=== PATIENT | female | born 1930 | race Caucasian/White ===

== ENCOUNTER 2016-12-04 17:33 | Outpatient (CLI) | payer MEDICARE, OTHER ==
[2016-12-04 18:31] LABS: BASOPHILS # (AUTO) 0.1 10^3/uL (0.0-0.1); BASOPHILS % (AUTO) 1.5 %; EOSINOPHILS # (AUTO) 0.2 10^3/uL (0.0-0.7); HCT - HEMATOCRIT 35.1 % (37.0-47.0); HGB - HEMOGLOBIN 11.6 g/dL (12.0-16.0); LYMPHOCYTES # (AUTO) 2.2 10^3/uL (1.5-3.5); LYMPHOCYTES % (AUTO) 25.3 %; MEAN CORPUSCULAR HEMOGLOBIN 31.2 pg (27.0-31.0); MEAN CORPUSCULAR VOLUME 94.7 fL (81.0-99.0); MEAN PLATELET VOLUME 7.2 fL (7.9-10.8); MONOCYTES % (AUTO) 11.5 %; NEUTROPHILS # (AUTO) 5.2 10^3/uL (1.5-6.6); NEUTROPHILS % (AUTO) 59.7 %; RED CELL DISTRIBUTION WIDTH 13.9 % (12.0-15.0); UNCORRECTED WHITE BLOOD COUNT 8.8 x10^3/uL; WHITE BLOOD COUNT 8.8 x10^3/uL (4.8-10.8)
[2016-12-04 18:38] LABS: ALBUMIN/GLOBULIN RATIO 0.9 (1.0-2.2); BILIRUBIN,TOTAL 0.2 mg/dL (0.2-1.0); CALCIUM 9.3 mg/dL (8.5-10.3); CREATININE 1.3 mg/dL (0.4-1.0); POTASSIUM 3.9 mmol/L (3.5-5.0); TOTAL PROTEIN 7.1 g/dL (6.7-8.2)
--- NOTE | 2016-12-04 18:54 | Ultrasound Preliminary Report ---
Exam: US DUPLEX EXT VEINS RIGHT IMPRESSION: No evidence for deep venous thrombosis. [facility] SITE ID: [id number]
--- NOTE | 2016-12-04 18:57 | Ultrasound Report ---
EXAM: RIGHT LOWER EXTREMITY VENOUS ULTRASOUND EXAM DATE: 12/04/2016 06:07 PM. CLINICAL HISTORY: Leg pain and swelling COMPARISON: None. TECHNIQUE: Real-time sonographic vascular imaging was performed by the supervisor labor gang through the lower extremity utilizing both color-flow and Doppler spectral analysis. Multiple premium service representative static joesph ges were saved for review. FINDINGS: Common Femoral Vein (CFV): Normal. CFV-GSV Junction: Normal. Profunda Femoral Vein (PFV): Normal. Femoral Vein (FV) Prox: Normal. Femoral Vein (FV) Mid: Normal. Femoral Vein (FV) Dist: Normal. Popliteal Vein: Normal. Posterior Tibial Veins: Normal. Peroneal Veins: Normal. Contralateral Side CFV: Normal. Other: None. IMPRESSION: No evidence for deep venous thrombosis. [facility] Referring Provider Line: [phone] SITE ID: [id number]
== END 2016-12-04 17:34 | disposition home or self-care (01) ==
LOC: DI 17:33
PROVIDERS: ATTEND Physician Assistant
DX: M79.604 Pain in right leg (principal); N18.1 Chronic kidney disease, stage 1; R53.83 Other fatigue
CPT/HCPCS: 36415; 80053; 83880; 84443; 85025

== ENCOUNTER 2017-09-22 15:43 | Outpatient (CLI) | payer MEDICARE, OTHER ==
--- NOTE | 2017-09-22 18:43 | Ultrasound Report ---
Procedure Date: 09/22/2017 Accession Number: [id number] / [id number] Procedure: US - Duplex Ext Veins Right CPT Code: FULL RESULT: EXAM: RIGHT LOWER EXTREMITY VENOUS ULTRASOUND EXAM DATE: 09/22/2017 04:06 PM. CLINICAL HISTORY: Right calf pain and swelling. Rule out DVT. COMPARISON: 12/04/2016. TECHNIQUE: Real-time sonographic vascular imaging was performed by the space technologist through the lower extremity utilizing both color-flow and Doppler spectral analysis. Multiple phlebotomy services representative static images were saved for review. FINDINGS: Common Femoral Vein (CFV): Normal. CFV-GSV Junction: Normal. Profunda Femoral Vein (PFV): Normal. Femoral Vein (FV) Prox: Normal. Femoral Vein (FV) Mid: Normal. Femoral Vein (FV) Dist: Normal. Popliteal Vein: Normal. Posterior Tibial Veins: Normal. Peroneal Veins: Normal. Other: No Reyes cyst. IMPRESSION: 1. No DVT in the right lower extremity. [facility]
== END 2017-09-22 15:44 | disposition home or self-care (01) ==
LOC: DI 15:43
PROVIDERS: ATTEND Physician Assistant
DX: M79.661 Pain in right lower leg (principal); R60.0 Localized edema

== ENCOUNTER 2017-12-26 14:02 | Inpatient (IN) | payer MEDICARE, OTHER ==
--- NOTE | 2017-12-26 15:26 | XRAY Report ---
Reason: GLF, right hip pain Procedure Date: 12/26/2017 Accession Number: [id number] / [id number] Procedure: XR - Hip w/Pelvis 2-3V RT CPT Code: FULL RESULT: EXAM: RIGHT HIP AND PELVIS RADIOGRAPHY EXAM DATE: 12/26/2017 03:09 PM. HISTORY: Fall. Right hip pain. COMPARISONS: None. TECHNIQUE: 1 view of the pelvis and 1 view of the hip. FINDINGS: Bones: Displaced subcapital femoral neck fracture. No other acute bony abnormalities identified. Joints: No dislocation. Expected appearance of left hip arthroplasty. Soft Tissues: Unremarkable. IMPRESSION: Displaced right subcapital femoral neck fracture. [facility]
[2017-12-26] MEDS ORDERED: oxyCODONE 5 MG TABLET PO PRN (15:46)
[2017-12-26] MEDS ORDERED: ONDANSETRON 4 MG/2 ML VIAL IVP PRN (15:46)
[2017-12-26] MEDS ORDERED: ONDANSETRON ODT 4 MG TABLET TL PRN (15:46)
--- NOTE | 2017-12-26 16:06 | ED Physician Documentation ---
History of Present Illness - Stated complaint Stated Complaint: GLF/RT HIP PX - Chief complaint Chief Complaint: General - Additonal information Additional information: 87-year-old female presents the emergency department with right hip pain after falling and injuring her hip today. The patient denies injury to her head, neck, torso or upper extremities. The patient denies a syncopal episode. The patient is unable to ambulate secondary to the pain. Symptoms are described as severe. No relieving factors. No other associated symptoms. Review of Systems Constitutional: denies: Fever Eyes: denies: Discharge Ears: denies: Ear pain Nose: denies: Congestion Throat: denies: Sore throat Cardiac: denies: Chest pain / pressure Respiratory: denies: Cough GI: denies: Abdominal Pain : denies: Dysuria Skin: denies: Rash Musculoskeletal: reports: Extremity pain, Joint pain. denies: Neck pain, Back pain Neurologic: denies: Generalized weakness, Head injury Psychiatric: denies: Depressed Immunocompromised: denies: Chemotherapy PD PAST MEDICAL HISTORY - Past Medical History Cardiovascular: Hypertension Musculoskeletal: Other Other Past Medical History: polyneuralgia - Past Surgical History Past Surgical History: Yes Ortho: Hip replacement HEENT: Cataracts, Tonsil/Adenoidectomy - Allergies Allergies/Adverse Reactions: Allergies Allergy/AdvReac Type Severity Reaction Status Date / Time No Known Drug Allergies Allergy Verified 12/26/17 14:21 - Social History Does the pt smoke?: No Smoking Status: Never smoker Does the pt drink ETOH?: Yes Does the pt have substance abuse?: No - Immunizations Immunizations are current?: Yes PD ED PE NORMAL - General General: Alert and oriented X 3, No acute distress - HEENT HEENT: Atraumatic, PERRL, EOMI - Neck Neck: Supple, no meningeal sign - Cardiac Cardiac: RRR, Strong equal pulses - Respiratory Respiratory: No respiratory distress, Clear bilaterally - Abdomen Abdomen: Soft, Non tender - Extremities Extremities: No: No deformity, No tenderness to palpate, Normal ROM s pain (The patient has an obvious deformity to the right leg with tenderness and decreased range of motion of the hip. There is no knee ankle or foot pain. Normal pulse) - Neuro Neuro: Alert and oriented X 3, Normal speech - Psych Psych: Normal mood Results - Vitals Vitals: Vital Signs - 24 hr 12/26/17 12/26/17 14:16 15:50 Temperature 36.8 C Heart Rate 68 70 Respiratory 20 16 Rate Blood Pressure 164/72 H 138/114 H O2 Saturation 90 L 92 Oxygen O2 Source Room air - Rads (name of study) XR Radiology: Final report received (hip fracture) PD MEDICAL DECISION MAKING - ED course ED course: The case was discussed with Dr. Loaiza the orthopedic surgeon on-call who agrees to evaluate the patient for definitive management. The case was discussed with the hospitalist Dr. Thurman who accepts the patient onto her service. The findings and plan were discussed with the patient who understands and agrees to the plan Departure - Departure Disposition: [facility] DC/Xfer Clinical Impression: Hip fracture Qualifiers: Encounter type: initial encounter Fracture type: closed Laterality: right Qualified Code(s): S72.001A - Fracture of unspecified part of neck of right femur, initial encounter for closed fracture Condition: Fair
--- NOTE | 2017-12-26 16:11 | XRAY Report ---
Reason: fall, hip fx Procedure Date: 12/26/2017 Accession Number: [id number] / [id number] Procedure: XR - Chest 1 View X-Ray CPT Code: 63539 FULL RESULT: EXAM: CHEST RADIOGRAPHY EXAM DATE: 12/26/2017 03:50 PM. CLINICAL HISTORY: Fall, hip fx. COMPARISON: CHEST 2 VIEW PA/LAT 05/25/2015 1:31 PM. TECHNIQUE: 1 view. FINDINGS: Lungs/Pleura: No evidence of lobar infiltrate or effusion. No pneumothorax. Mediastinum: There is cardiomegaly. Other: There is a large hiatal hernia. IMPRESSION: No acute intrathoracic plain film abnormality. [facility]
[2017-12-26 16:19] LABS: BASOPHILS % (AUTO) 0.2 %; HGB - HEMOGLOBIN 11.1 g/dL (12.0-16.0); LYMPHOCYTES # (AUTO) 1.1 10^3/uL (1.5-3.5); LYMPHOCYTES % (AUTO) 8.8 %; MEAN CORPUSCULAR HEMOGLOBIN 27.2 pg (27.0-31.0); MEAN CORPUSCULAR HGB CONC 31.6 g/dL (32.0-36.0); MEAN PLATELET VOLUME 7.2 fL (7.9-10.8); MONOCYTES % (AUTO) 8.2 %; NEUTROPHILS % (AUTO) 82.8 %; PLT - PLATELET COUNT 388 10^3/uL (130-450); RED BLOOD COUNT 4.09 10^6/uL (4.20-5.40); WHITE BLOOD COUNT 12.1 x10^3/uL (4.8-10.8)
[2017-12-26 16:24] LABS: INR 1.3 (0.8-1.2); PT - PROTHROMBIN TIME 14.9 secs (9.9-12.6)
[2017-12-26 16:36] LABS: ALBUMIN 3.3 g/dL (3.2-5.5); ALBUMIN/GLOBULIN RATIO 0.8 (1.0-2.2); BILIRUBIN,TOTAL 0.8 mg/dL (0.2-1.0); CALCIUM 9.2 mg/dL (8.5-10.3); CREATININE 0.9 mg/dL (0.4-1.0); TOTAL PROTEIN 7.3 g/dL (6.7-8.2)
--- NOTE | 2017-12-26 16:49 | HISTORY & PHYSICAL EXAMINATION ---
Chief Complaint - Chief Complaint Chief Complaint: Hip Fracture History of Present Illness - Admitted From Admitted From:: ED - History Obtained From Records Reviewed: Yes History obtained from: Patient Exam Limitations: None - History of Present Illness HPI Comment/Other: 87 yo female with pmh of HTN, chronic pain and previous L hip repair presents to the ER following a fall and right hip fracture. She states that she saw her PCP today for rhinorrhea. PCP evaluated and suggested nasal irrigation. Patient left the PCP office to go to the bank where she noticed her tire was flat. She called [employer] in which they asked her to open the rear car door to access the spare tire. Upon opening the back door, she lost her balance and fell on her right side. She was able to get up with the help of the [employer] servicemen. She called her friend to drive her to the ER where she was evaluated and found to have a R hip fracture on x-ray. Patient is denying abdominal pain, chest pain, sob, syncope, LOC, blurry vision tinnitus, palpitations, nausea, vomiting, fever, dysuria, R upper extremity pain, neck pain. Patient is able to move her toes, dorsalis pedis pulses intact, sensation of L3-S1 bilaterally intact. Her cardiac risk factors include age and hypertension. She has not had an IA, nor is she in atrial fibrillation. She does not have a history of valvular heart disease. She does not have any major lung or kidney problems. Revised Cardiac Risk Index for Pre-Operative Risk is 0. Dr. Loaiza, orthopedic surgeon, has been consulted to evaluate patient. History - Past Medical History Cardiovascular: reports: Hypertension Respiratory: reports: None Neuro: reports: Peripheral neuropathy Endocrine/Autoimmune: reports: None GI: reports: None LEGISLATIVE CORRESPONDENT: reports: Other () : reports: None HEENT: reports: None Psych: reports: None Musculoskeletal: reports: Other (Previous L hip repair) Derm: reports: None MRSA Hx?: No Other Past Medical History: polyneuralgia - Past Surgical History Ortho: reports: Hip replacement HEENT: reports: Cataracts, Tonsil/Adenoidectomy - Family & Social History Family History: Mother: , Hypertension, Father: , IA, Brother: Family History Comment/Other: Mom - passed at 53 with pmh of HTN due to aneurysm. Dad - passed due to IA. Brother - passed at 33 due to accident Living arrangement: At home Living Situation: Alone - Substance History Use: Uses substance without health or social issues: Alcohol (2 drinks of wine a week) Abuse: Recurrent use of substance despite neg consequences: NONE Dependence: Experiences withdrawal or developed tolerances: NONE - POLST Patient has POLST: No POLST Status: Full Code (with living will for clarification in further interventions - she states daughter has living will and it should be followed.) Meds/Allgy - Home Medications Home Medications: Ambulatory Orders Medication Instructions Recorded Confirmed Carvedilol [Coreg] 12.5 mg PO BID 12/26/17 12/26/17 Cholecalciferol (Vitamin D3) 2,000 unit PO DAILY 12/26/17 12/26/17 [Vitamin D] Furosemide [Lasix] 20 mg PO DAILY 12/26/17 12/26/17 Lutein 20 mg PO DAILY 12/26/17 12/26/17 Magnesium Oxide [Mag Ox] 400 mg PO DAILY 12/26/17 12/26/17 Omeprazole 20 mg PO DAILY 12/26/17 12/26/17 Oxybutynin [Ditropan] 5 mg PO DAILY 12/26/17 12/26/17 Potassium Chloride [Micro-K] 10 meq PO DAILY 12/26/17 12/26/17 Ubiquinol 100 mg PO DAILY 12/26/17 12/26/17 predniSONE [Prednisone] mg PO 12/26/17 traZODone [Desyrel] 75 mg PO QPM 12/26/17 12/26/17 - Allergies Allergies/Adverse Reactions: Allergies Allergy/AdvReac Type Severity Reaction Status Date / Time No Known Drug Allergies Allergy Verified 12/26/17 14:21 Review of Systems - Constitutional Constitutional: denies: Fatigue, Fever, Chills - Eyes Eyes: denies: Blurred vision - Ears, Nose & Throat Ears, Nose & Throat: reports: Other (rhinorrhea evaluated by PCP today) - Cardiovascular Cariovascular: denies: Irregular heart rate, Palpitations, Chest pain, Lightheadedness, Syncope - Respiratory Respiratory: denies: Cough, SOB at rest, SOB with exertion - Gastrointestinal Gastrointestinal: reports: Constipation. denies: Abdominal pain, Abdominal distention - Genitourinary Genitourinary: denies: Dysuria - Musculoskeletal Musculoskeletal: reports: Stiffness, Joint pain - Integumentary Integumentary: denies: Rash, Pruritis - Neurological Neurological: reports: Abnormal gait (Pain with walking due to right hip fracture). denies: General weakness, Headache, Dizziness, Numbness, Seizures - Psychiatric Psychiatric: denies: Depression - Endocrine Endocrine: denies: Polyuria - Hematologic/Lymphatic Hematologic/Lymphatic: denies: Anemia, Bruising - All Other Systems All Other Systems: reports: Reviewed and negative Prior Level of Functionality: 87 yo female with pmh of HTN, chronic pain and left hip repair moved to [facility] in 1988 with her . She worked at [employer] until they moved and retired to the [place] in 2003. She had 3 children with her (1 daughter and 2 sons). The daughter and sons live on the [facility] and she visits them regularly. She states they do not [place] to [place]. Patient is active and plays golf, bridge, mows her own lawn and gardens daily. She is yazidi and is involved in prayer groups and bible studies throughout the week. She has a close friend, Roverto, and a good support group through her buddhism. Exam - Vital Signs Reviewed Vital Signs: Yes Vital Signs: Vital Signs x48h Temp Pulse Resp BP Pulse Ox 12/26/17 15:50 70 16 138/114 H 92 12/26/17 14:16 36.8 C 68 20 164/72 H 90 L - Physical Exam General Appearance: positive: No acute distress, Alert Eyes Bilateral: positive: Normal inspection, PERRL ENT: positive: ENT inspection nml, No signs of dehydration Neck: positive: Nml inspection Respiratory: positive: Chest non-tender, No respiratory distress, Rhonchi. negative: Wheezes, Rales Cardiovascular: positive: Regular rate & rhythm, No murmur, No gallop Peripheral Pulses: positive: 2+ (radial and dorsalis pedis bilaterally) Abdomen: positive: Non-tender, No organomegaly, Nml bowel sounds, No distention Rectal: negative: Bloody stool Back: positive: Nml inspection Skin: positive: Color nml, No rash, Warm, Dry Extremities: positive: Non-tender, Full ROM (able to move her toes, flex/extend ankle bilaterally, Full ROM of UE), Nml appearance, Pedal edema Neurologic/Psychiatric: positive: Oriented x3, Mood/affect nml, Other (L3-S1 bilaterally intact) Conclusion/Plan - Problem List (1) Hip fracture Conclusion/Plan: IMPRESSION: Displaced right subcapital femoral neck fracture. Plan: Dr. Loaiza consulted and evaluated patient - states NPO after midnight chest x-ray, ekg, coags completed for surgery oxycodone for pain, zofran for nausea Lovenox following surgery Qualifiers: Encounter type: initial encounter Fracture type: closed Laterality: right Qualified Code(s): S72.001A - Fracture of unspecified part of neck of right femur, initial encounter for closed fracture (2) Preop cardiovascular exam Conclusion/Plan: She is not undergoing a high risk surgery, no history of ischemic heart disease, no history of congestive heart failure, no history of cerebrovascular disease, no insulin, and creatinine is less than 2. This leaves her with 0 points, class I risk, and 0.4% risk of major cardiac event. (3) Essential hypertension Conclusion/Plan: Blood pressure levels from 180-136 systolic to 138-60 diastolic. Patient chronic problem taking furosemide and carvedilol. Plan: continue home medication monitor vitals (4) Hypokalemia Conclusion/Plan: Supplement with 1 dose of p.o. potassium. N.p.o. after midnight. Recheck potassium in the morning. (5) Normocytic anemia Conclusion/Plan: chronic. Present in 2016. Plan: check anemia panel stool for occult blood - Lab Results Lab results reviewed: Yes Fish Bones: 12/26/17 16:14 12/26/17 16:14 - Diagnostic Imaging Results Diagnostic Imaging Results: positive: Final report reviewed Diagnostic Imaging Results Comments: EXAM: [id number] XR/RHIP2V ([id number]) Reason: GLF, right hip pain Procedure Date: 12/26/2017 Accession Number: [id number] / [id number] Procedure: XR - Hip w/Pelvis 2-3V RT CPT Code: FULL RESULT: EXAM: RIGHT HIP AND PELVIS RADIOGRAPHY EXAM DATE: 12/26/2017 03:09 PM. HISTORY: Fall. Right hip pain. COMPARISONS: None. TECHNIQUE: 1 view of the pelvis and 1 view of the hip. FINDINGS: Bones: Displaced subcapital femoral neck fracture. No other acute bony abnormalities identified. Joints: No dislocation. Expected appearance of left hip arthroplasty. Soft Tissues: Unremarkable. IMPRESSION: Displaced right subcapital femoral neck fracture. [facility] Medical Assisting Instructor: Reading Radiologist: Elian Muir MD Releasing Radiologist: Elian Muir MD Released Date Time: 12/26/171526 Report 152 cc: ROSEY Velazco; Azar Bansal DO Principal Band Aid Machine Operator Name: Elian Muir Provider ID: [id number] EXAM: [id number] XR/[id number] ([id number]) Reason: fall, hip fx Procedure Date: 12/26/2017 Accession Number: [id number] / [id number] Procedure: XR - Chest 1 View X-Ray CPT Code: 02530 FULL RESULT: EXAM: CHEST RADIOGRAPHY EXAM DATE: 12/26/2017 03:50 PM. CLINICAL HISTORY: Fall, hip fx. COMPARISON: CHEST 2 VIEW PA/LAT 05/25/2015 1:31 PM. TECHNIQUE: 1 view. FINDINGS: Lungs/Pleura: No evidence of lobar infiltrate or effusion. No pneumothorax. Mediastinum: There is cardiomegaly. Other: There is a large hiatal hernia. IMPRESSION: No acute intrathoracic plain film abnormality. [facility] Medical Assisting Instructor: Reading Radiologist: Giovanni Mckeon MD Releasing Radiologist: Giovanni Mckeon MD Released Date Time: 12/26/171610 Report 161 cc: ROSEY Velazco; Azar Bansal DO EXAM: RIGHT HIP AND PELVIS RADIOGRAPHY FINDINGS: Bones: Displaced subcapital femoral neck fracture. No other acute bony abnormalities identified. Joints: No dislocation. Expected appearance of left hip arthroplasty. Soft Tissues: Unremarkable. - EKG Results EKG Interpreted Independently: Yes Core Measures - Anticipated LOS I expect patient to be DC'd or transferred within 96 hours.: Yes - DVT/VTE - Prophylaxis VTE/DVT Device ordered at admit?: Yes - Stroke - Rehab Assessment Rehab services assessment to be ordered?: No - AMI - Statin at Admit Aspirin Prescribed on Admit: No
[2017-12-26] MEDS: SODIUM CHLORIDE 0.9% 1,000 ML IV SCH (17:02)
[2017-12-26] MEDS: SODIUM CHLORIDE FLUSH 0.9% 10 ML SYRINGE IVP SCH (17:02)
--- NOTE | 2017-12-26 17:27 | PROVIDER PROGRESS NOTE ---
Subjective - Prog Note Date Prog Note Date: 12/26/17 Prog Note Time: 17:25 - Subjective Pt reports feeling: Worse (Patient [facility] a GLF while working on her car's flat tire, sustaining a closed displced right subcapital hip fracture today. No LOC or othrer injury. History of left THR at [facility] in [address] Penn. Lives alone; very active and independent (golfs).) Objective - Vital Signs/Intake & Output Vital Signs: Vital Signs x48h Temp Pulse Pulse Resp BP BP Pulse Ox 12/26/17 17:07 92 12/26/17 17:06 36.6 C 75 18 162/66 H 88 L 12/26/17 16:48 75 15 180/136 H 92 12/26/17 15:50 70 16 138/114 H 92 12/26/17 14:16 36.8 C 68 20 164/72 H 90 L - Lab Results Fish Bones: 12/26/17 16:14 12/26/17 16:14 Other Labs: Lab Results x24hrs 12/26/17 12/26/17 12/26/17 Range/Units 16:14 16:14 16:14 WBC (4.8-10.8) x10^3/uL RBC (4.20-5.40) 10^6/uL Hgb (12.0-16.0) g/dL Hct (37.0-47.0) % MCV (81.0-99.0) fL MCH (27.0-31.0) pg MCHC (32.0-36.0) g/dL RDW (12.0-15.0) % Plt Count (130-450) 10^3/uL MPV (7.9-10.8) fL Neut # (Auto) (1.5-6.6) 10^3/uL Lymph # (Auto) (1.5-3.5) 10^3/uL Walton # (Auto) (0.0-1.0) 10^3/uL Eos # (Auto) (0.0-0.7) 10^3/uL Baso # (Auto) (0.0-0.1) 10^3/uL Absolute Nucleated RBC x10^3/uL Nucleated RBC % /100WBC PT 14.9 H (9.9-12.6) secs INR 1.3 H (0.8-1.2) APTT 27.5 (24.9-33.3) secs Sodium 136 (135-145) mmol/L Potassium 3.3 L (3.5-5.0) mmol/L Chloride 93 L (101-111) mmol/L Carbon Dioxide 31 (21-32) mmol/L Anion Gap 12.0 (6-13) BUN 21 H (6-20) mg/dL Creatinine 0.9 (0.4-1.0) mg/dL Estimated GFR (MDRD) 59 L (>89) Glucose 146 H (70-100) mg/dL Calcium 9.2 (8.5-10.3) mg/dL Total Bilirubin 0.8 (0.2-1.0) mg/dL AST 23 (10-42) IU/L ALT 19 (10-60) IU/L Alkaline Phosphatase 75 (42-121) IU/L Troponin I < 0.04 (<0.49) ng/mL Total Protein 7.3 (6.7-8.2) g/dL Albumin 3.3 (3.2-5.5) g/dL Globulin 4.0 (2.1-4.2) g/dL Albumin/Globulin Ratio 0.8 L (1.0-2.2) Lipase 30 (22-51) U/L 12/26/17 Range/Units 16:14 WBC 12.1 H (4.8-10.8) x10^3/uL RBC 4.09 L (4.20-5.40) 10^6/uL Hgb 11.1 L (12.0-16.0) g/dL Hct 35.1 L (37.0-47.0) % MCV 86.0 (81.0-99.0) fL MCH 27.2 (27.0-31.0) pg MCHC 31.6 L (32.0-36.0) g/dL RDW 16.0 H (12.0-15.0) % Plt Count 388 (130-450) 10^3/uL MPV 7.2 L (7.9-10.8) fL Neut # (Auto) 10.0 H (1.5-6.6) 10^3/uL Lymph # (Auto) 1.1 L (1.5-3.5) 10^3/uL Walton # (Auto) 1.0 (0.0-1.0) 10^3/uL Eos # (Auto) 0.0 (0.0-0.7) 10^3/uL Baso # (Auto) 0.0 (0.0-0.1) 10^3/uL Absolute Nucleated RBC 0.00 x10^3/uL Nucleated RBC % 0.0 /100WBC PT (9.9-12.6) secs INR (0.8-1.2) APTT (24.9-33.3) secs Sodium (135-145) mmol/L Potassium (3.5-5.0) mmol/L Chloride (101-111) mmol/L Carbon Dioxide (21-32) mmol/L Anion Gap (6-13) BUN (6-20) mg/dL Creatinine (0.4-1.0) mg/dL Estimated GFR (MDRD) (>89) Glucose (70-100) mg/dL Calcium (8.5-10.3) mg/dL Total Bilirubin (0.2-1.0) mg/dL AST (10-42) IU/L ALT (10-60) IU/L Alkaline Phosphatase (42-121) IU/L Troponin I (<0.49) ng/mL Total Protein (6.7-8.2) g/dL Albumin (3.2-5.5) g/dL Globulin (2.1-4.2) g/dL Albumin/Globulin Ratio (1.0-2.2) Lipase (22-51) U/L - Diagnostic Imaging Diagnostic Imaging Comments: XR shows a displaced right subcapital hip fracture - Other Results/Comments Other Results/Comments: EXAM: Right hip: painful motion. Legs equal length and symmetrical rotation. Moves toes well.Sensation intact. 1+ DP pulse. Assessment/Plan - Problem List (1) Hip fracture Impression: Closed, displaced right subcapital hip fracture in active elderly patient PLAN: To OR Sat for cementless right bipolar hip hemiarthroplasty. Risk/benefits of surgery explained; questions answered. She wishes to proceed as planned. Consent signed. Leg marked. Qualifiers: Encounter type: initial encounter Fracture type: closed Laterality: right Qualified Code(s): S72.001A - Fracture of unspecified part of neck of right femur, initial encounter for closed fracture
[2017-12-26] MEDS ORDERED: ceFAZolin 2 GM/50 ML 2 GM/50 ML BAG IV SCH (17:30)
--- NOTE | 2017-12-26 18:56 | CONSULTATION NOTE ---
DATE OF SERVICE: 12/26/2017 Physician: Carlo Loaiza MD REFERRING PHYSICIAN: Azar Bansal of the emergency room department. CHIEF COMPLAINT: "My right hip hurts." HISTORY OF PRESENT ILLNESS: The patient is an 87-year-old, female, a very active individua l who lives alone, who apparently was attempting to lift the hatchback trunk lid of her [employer] er vehicle today, while attempting to assist [employer] with a replacement of her flat tire, when she lost h er balance and fell onto her right side. She noted immediate pain and mild deformity of the leg, was unable to stand or weight bear after this fall. She was taken by ambulance to the emergency room he re, at [facility], where x-rays showed a displaced closed right subcapital hip fracture . Patient denies any loss of consciousness, nausea, vomiting, or other injuries. In the past, in 13 10, she apparently had a left total hip arthroplasty performed by Dr. Fili camara at [facility] in [place], [place]. PHYSICAL EXAMINATION: Reveals a small, elderly, woman, lying in her bed, in a mild amount of distress. Right hip: There is some tenderness anteriorly on palpation around the hip. There is painful range of motion of the hip noted. Right leg appears to be essentially the same length as the left side. Minimal malrotation when compared to the left side. She moves her toes on command witho ut any problems. Sensation appeared to be intact as well (patient does complain of mild neuropathy - chronic). Patient has a 1+ dorsalis pedis pulse on palpation today as well. Toes are warm. X-RAYS: Show a displaced subcapital right hip fracture. ASSESSMENT: 1. Closed displaced right subcapital hip fracture. 2. History of hypertension. PLAN: Patient has been cleared for surgery by the medical service. Have discussed with the patient our treatment options. She wishes to proceed with surgery. Our plan then would be to insert a [facility] bipolar right hip hemiarthroplasty Friday. This has been scheduled with the OR. Risks and b enefits of surgery were explained to the patient. These include anesthesia risks, infection, blood l oss, nerve damage, refracture, hip dislocation, etc. She appears to understand these risks and wishe s to proceed with surgery. The leg has been marked, and consent has been signed. TD: 12/26/2017 17:43
[2017-12-26] MEDS ORDERED: POTASSIUM CHLORIDE 20 MEQ TABLET PO ONE (20:21)
[2017-12-26] MEDS: ACETAMINOPHEN 325 MG TABLET PO PRN (20:47)
[2017-12-27] MEDS: SODIUM CHLORIDE FLUSH 0.9% 10 ML SYRINGE IVP SCH ×3 (00:01→18:39)
[2017-12-27] MEDS: ACETAMINOPHEN 325 MG TABLET PO PRN ×2 (01:30→06:52)
[2017-12-27] MEDS: SODIUM CHLORIDE 0.9% 1,000 ML IV SCH (04:16)
[2017-12-27 04:50] LABS: CALCIUM 8.4 mg/dL (8.5-10.3); CREATININE 0.8 mg/dL (0.4-1.0)
[2017-12-27 04:53] LABS: BASOPHILS # (AUTO) 0.1 10^3/uL (0.0-0.1); BASOPHILS % (AUTO) 0.6 %; EOSINOPHILS # (AUTO) 0.3 10^3/uL (0.0-0.7); HGB - HEMOGLOBIN 9.8 g/dL (12.0-16.0); LYMPHOCYTES # (AUTO) 1.7 10^3/uL (1.5-3.5); LYMPHOCYTES % (AUTO) 16.2 %; MEAN CORPUSCULAR HEMOGLOBIN 27.3 pg (27.0-31.0); MEAN CORPUSCULAR HGB CONC 31.7 g/dL (32.0-36.0); MEAN CORPUSCULAR VOLUME 86.3 fL (81.0-99.0); MEAN PLATELET VOLUME 7.2 fL (7.9-10.8); MONOCYTES # (AUTO) 0.9 10^3/uL (0.0-1.0); MONOCYTES % (AUTO) 8.3 %; NEUTROPHILS # (AUTO) 7.4 10^3/uL (1.5-6.6); NEUTROPHILS % (AUTO) 71.9 %; PLT - PLATELET COUNT 314 10^3/uL (130-450); RED BLOOD COUNT 3.57 10^6/uL (4.20-5.40); RED CELL DISTRIBUTION WIDTH 15.7 % (12.0-15.0); WHITE BLOOD COUNT 10.3 x10^3/uL (4.8-10.8)
[2017-12-27] MEDS: POLYETHYLENE GLYCOL 3350 17 GM PACKET PO SCH (07:22)
[2017-12-27] MEDS ORDERED: ENOXAPARIN 40 MG/0.4 ML SYRINGE SUBQ SCH (09:00)
--- NOTE | 2017-12-27 11:39 | ANESTHESIA ---
Pre-Anesthesia VS, & Labs - Diagnosis Right fractured hip - Procedure Right hip hemiarthroplasty Vital Signs: Temp Pulse Resp BP Pulse Ox 36.8 C 71 19 153/62 H 90 L 12/27/17 07:38 12/27/17 07:38 12/27/17 07:38 12/27/17 07:38 12/27/17 07:38 Height 4 ft 11 in Weight (kg) 55 kg Body Mass Index 24.5 - NPO >8 hours - Is Patient ?: Not Applicable - Lab Results Current Lab Results: Laboratory Tests 12/27/17 04:25: Blood Type A POSITIVE, Antibody Screen NEGATIVE 12/27/17 04:25: Sodium 137, Potassium 3.8, Chloride 100 L, Carbon Dioxide 27, Anion Gap 10.0, BUN 20, Creatinine 0.8, Estimated GFR (MDRD) 68 L, Glucose 120 H , Calcium 8.4 L 12/27/17 04:25: WBC 10.3, RBC 3.57 L, Hgb 9.8 L, Hct 30.8 L, MCV 86.3, MCH 27.3, MCHC 31.7 L, RDW 15.7 H, Plt Count 314, MPV 7.2 L, Neut # (Auto) 7.4 H, Lymph # (Auto) 1.7, Creek # (Auto) 0.9, Eos # (Auto) 0.3, Baso # (Auto) 0.1, Absolute Nucleated RBC 0.01, Nucleated RBC % 0.1 12/26/17 16:14: PT 14.9 H, INR 1.3 H, APTT 27.5 12/26/17 16:14: Troponin I < 0.04 12/26/17 16:14: Sodium 136, Potassium 3.3 L, Chloride 93 L, Carbon Dioxide 31, Anion Gap 12.0, BUN 21 H, Creatinine 0.9, Estimated GFR (MDRD) 59 L, Glucose 146 H, Calcium 9.2, Total Bilirubin 0.8, AST 23, ALT 19, Alkaline Phosphatase 75, Total Protein 7.3, Albumin 3.3, Globulin 4.0, Albumin/Globulin Ratio 0.8 L, Lipase 30 12/26/17 16:14: WBC 12.1 H, RBC 4.09 L, Hgb 11.1 L, Hct 35.1 L, MCV 86.0, MCH 27.2, MCHC 31.6 L, RDW 16.0 H, Plt Count 388, MPV 7.2 L, Neut # (Auto) 10.0 H, Lymph # (Auto) 1.1 L, Creek # (Auto) 1.0, Eos # (Auto) 0.0, Baso # (Auto) 0.0, Absolute Nucleated RBC 0.00, Nucleated RBC % 0.0 Fish Bones: 12/27/17 04:25 12/27/17 04:25 Home Medications and Allergies Home Medications: Ambulatory Orders Carvedilol [Coreg] 12.5 mg PO BID 12/26/17 Cholecalciferol (Vitamin D3) [Vitamin D] 2,000 unit PO DAILY 12/26/17 Furosemide [Lasix] 20 mg PO DAILY 12/26/17 Magnesium Oxide [Mag Ox] 400 mg PO DAILY 12/26/17 Omeprazole 20 mg PO DAILY 12/26/17 Oxybutynin [Ditropan] 5 mg PO QPM 12/26/17 Potassium Chloride [Micro-K] 10 meq PO DAILY 12/26/17 Ubiquinol 100 mg PO DAILY 12/26/17 predniSONE [Prednisone] 7.5 mg PO DAILY 12/26/17 traZODone [Desyrel] 25 mg PO QPM 12/26/17 Vit A/Vit C/Vit E/Zinc/Copper [Preservision Areds Softgel] 2 each PO DAILY 12/27/17 Active Medications Acetaminophen (Tylenol) 650 mg PO Q4HR PRN PRN Reason: Pain 1 to 4 Last Admin: 12/27/17 06:52 Dose: 650 mg Enoxaparin Sodium (Lovenox) 40 mg SUBQ DAILY SUSANNA Last Admin: 12/27/17 07:09 Dose: Not Given Sodium Chloride (Normal Saline 0.9%) 1,000 mls @ 85 mls/hr IV .[id number] SUSANNA Last Admin: 12/27/17 04:16 Dose: 85 mls/hr Cefazolin Sodium/Dextrose (Ancef 2 Gm/50 Ml) 2 gm in 50 mls @ 100 mls/hr IV ONCE SUSANNA Stop: 12/27/17 17:00 Morphine Sulfate (Morphine (Carpuject)) 2 mg IVP Q2HR PRN PRN Reason: Pain 8 to 10 Ondansetron HCl (Zofran Inj) 4 mg IVP Q6HR PRN PRN Reason: Nausea / Vomiting Ondansetron HCl (Zofran Odt) 4 mg TL Q6HR PRN PRN Reason: Nausea / Vomiting Oxycodone HCl (Roxicodone) 5 mg PO Q4HR PRN PRN Reason: Pain 5 to 7 Polyethylene Glycol (Miralax) 17 gm PO DAILY [facility] Last Admin: 12/27/17 07:22 Dose: Not Given Sodium Chloride (Normal Saline Flush 0.9%) 10 ml IVP PRN PRN PRN Reason: NEEDED PER PROVIDER ORDERS Sodium Chloride (Normal Saline Flush 0.9%) 10 ml IVP 0100,0900,1700 [facility] Last Admin: 12/27/17 07:22 Dose: Not Given Carvedilol [Coreg] 12.5 mg PO BID 12/26/17 Cholecalciferol (Vitamin D3) [Vitamin D] 2,000 unit PO DAILY 12/26/17 Furosemide [Lasix] 20 mg PO DAILY 12/26/17 Magnesium Oxide [Mag Ox] 400 mg PO DAILY 12/26/17 Omeprazole 20 mg PO DAILY 12/26/17 Oxybutynin [Ditropan] 5 mg PO QPM 12/26/17 Potassium Chloride [Micro-K] 10 meq PO DAILY 12/26/17 Ubiquinol 100 mg PO DAILY 12/26/17 predniSONE [Prednisone] 7.5 mg PO DAILY 12/26/17 traZODone [Desyrel] 25 mg PO QPM 12/26/17 Vit A/Vit C/Vit E/Zinc/Copper [Preservision Areds Softgel] 2 each PO DAILY 12/27/17 Allergies/Adverse Reactions: Allergies Allergy/AdvReac Type Severity Reaction Status Date / Time No Known Drug Allergies Allergy Verified 12/26/17 14:21 Anes History & Medical History - Anesthetic History Anesthesia Complications: reports: No previous complications Family history of Anesthesia Complications: Denies Family history of Malignant Hyperthermia: Denies - Medical History Cardiovascular: reports: Hypertension Pulmonary: reports: None Gastrointestinal: reports: None, GERD, Hiatal hernia Urinary: reports: None Neuro: reports: Peripheral neuropathy Musculoskeletal: reports: Other (Previous L hip repair) Endocrine/Autoimmune: reports: None Blood Disorders: reports: None Skin: reports: None Smoking Status: Former smoker Psychosocial: reports: No issues indicated Other Past Medical History: polyneuralgia - Surgical History Eyes Ears Nose Throat (EENT): Cataracts, Tonsil/Adenoidectomy Orthopedic: Hip replacement Exam General: Alert, Oriented x3 Dental: WNL Mouth Opening: Greater than 4 Fingerbreadths Neck Mobility: Limited Mallampati classification: II Thyromental Distance: greater than 6 cm Respiratory: Lungs clear Neurological: Normal speech Mental/Cognitive Status: Alert/Oriented X3 Cognitive Status: Within normal limits Plan Anesthesia Type: General Consent for Procedure(s) Verified and Reviewed: Yes Code Status: Attempt Resuscitation ASA classification: 2-Mild systemic disease Is this case an emergency?: Yes
--- NOTE | 2017-12-27 11:49 | PROVIDER PROGRESS NOTE ---
Subjective - Prog Note Date Prog Note Date: 12/27/17 Prog Note Time: 08:00 - Subjective Pt reports feeling: No change Subjective: 87 yo female with pmh of HTN, chronic pain and previous L hip repair inpatient Day 2 presented to the ER following a fall and right hip fracture. Dr. Loaiza was consulted and evaluated the patient for surgery this afternoon. Patient understands the risk/benefits of surgery and has no further questions. Patient has requested rehab at [facility] where she was treated following left hip replacement in 2007. Patient tolerated pain. Patient is denying abdominal pain, chest pain, sob, syncope, LOC, blurry vision tinnitus, palpitations, nausea, vomiting, fever, dysuria, R upper extremity pain, neck pain. Patient is able to move her toes, dorsalis pedis pulses intact, sensation of L3-S1 bilaterally int act. [employer] Surgical Risk Factor evaluated with below average chance of outcome for serious complication, any complication, pneumonia, cardiac complication, surgical site infection, UTI, venous thromboembolism, renal failure, readmission, return to OR, with predicted hospital stay of 3.5 days. Current Medications - Current Medications Current Medications: Current Medications Generic Name Dose Route Start Last Admin Trade Name Freq PRN Reason Stop Dose Admin Acetaminophen 650 mg 12/26/17 15:46 12/27/17 06:52 Tylenol PO 650 mg Q4HR PRN Administration Pain 1 to 4 Enoxaparin Sodium 40 mg 12/27/17 09:00 12/27/17 07:09 Lovenox SUBQ Not Given DAILY SUSANNA Sodium Chloride 1,000 mls @ 85 mls/hr 12/26/17 16:00 12/27/17 04:16 Normal Saline 0.9% IV 85 mls/hr .[id number] SUSANNA Administration Polyethylene Glycol 17 gm 12/27/17 09:00 12/27/17 07:22 Miralax PO Not Given DAILY SUSANNA Sodium Chloride 10 ml 12/26/17 17:00 12/27/17 07:22 Normal Saline Flush 0.9% IVP Not Given 0100,0900,1700 SUSANNA Objective - Vital Signs/Intake & Output Reviewed Vital Signs: Yes Vital Signs: Vital Signs x48h Temp Pulse Resp BP Pulse Ox 12/27/17 07:38 36.8 C 71 19 153/62 H 90 L Intake & Output: Intake & Output 10/31/18 11/01/18 11/02/18 11/03/18 23:59 23:59 23:59 23:59 Intake Total 402.758 5757.75 Output Total 500 600 Balance 147.083 507.75 - Objective General Appearance: positive: No acute distress, Alert Eyes Bilateral: positive: Normal inspection, PERRL ENT: positive: ENT inspection nml, No signs of dehydration Neck: positive: Nml inspection Respiratory: positive: Chest non-tender, No respiratory distress, Breath sounds nml Cardiovascular: positive: Regular rate & rhythm, No murmur, No gallop Peripheral Pulses: 2+ Radial (R), 2+ Radial (L), 2+ Dorsalis pedis (R), 2+ Dorsalis pedis (L) Rectal: negative: Bloody stool Skin: positive: Color nml, No rash, Warm, Dry Extremities: positive: Nml appearance, No pedal edema. negative: Full ROM (decrease ROM of left hip due to fracture) Neurologic/Psychiatric: positive: Oriented x3, Mood/affect nml - Lab Results Fish Bones: 12/27/17 04:25 12/27/17 04:25 Other Labs: Lab Results x24hrs 12/27/17 12/27/17 12/27/17 Range/Units 04:25 04:25 04:25 WBC 10.3 (4.8-10.8) x10^3/uL RBC 3.57 L (4.20-5.40) 10^6/uL Hgb 9.8 L (12.0-16.0) g/dL Hct 30.8 L (37.0-47.0) % MCV 86.3 (81.0-99.0) fL MCH 27.3 (27.0-31.0) pg MCHC 31.7 L (32.0-36.0) g/dL RDW 15.7 H (12.0-15.0) % Plt Count 314 (130-450) 10^3/uL MPV 7.2 L (7.9-10.8) fL Neut # (Auto) 7.4 H (1.5-6.6) 10^3/uL Lymph # (Auto) 1.7 (1.5-3.5) 10^3/uL Garland # (Auto) 0.9 (0.0-1.0) 10^3/uL Eos # (Auto) 0.3 (0.0-0.7) 10^3/uL Baso # (Auto) 0.1 (0.0-0.1) 10^3/uL Absolute Nucleated RBC 0.01 x10^3/uL Nucleated RBC % 0.1 /100WBC PT (9.9-12.6) secs INR (0.8-1.2) APTT (24.9-33.3) secs Sodium 137 (135-145) mmol/L Potassium 3.8 (3.5-5.0) mmol/L Chloride 100 L (101-111) mmol/L Carbon Dioxide 27 (21-32) mmol/L Anion Gap 10.0 (6-13) BUN 20 (6-20) mg/dL Creatinine 0.8 (0.4-1.0) mg/dL Estimated GFR (MDRD) 68 L (>89) Glucose 120 H (70-100) mg/dL Calcium 8.4 L (8.5-10.3) mg/dL Total Bilirubin (0.2-1.0) mg/dL AST (10-42) IU/L ALT (10-60) IU/L Alkaline Phosphatase (42-121) IU/L Troponin I (<0.49) ng/mL Total Protein (6.7-8.2) g/dL Albumin (3.2-5.5) g/dL Globulin (2.1-4.2) g/dL Albumin/Globulin Ratio (1.0-2.2) Lipase (22-51) U/L Blood Type A POSITIVE Antibody Screen NEGATIVE 12/26/17 12/26/17 12/26/17 Range/Units 16:14 16:14 16:14 WBC (4.8-10.8) x10^3/uL RBC (4.20-5.40) 10^6/uL Hgb (12.0-16.0) g/dL Hct (37.0-47.0) % MCV (81.0-99.0) fL MCH (27.0-31.0) pg MCHC (32.0-36.0) g/dL RDW (12.0-15.0) % Plt Count (130-450) 10^3/uL MPV (7.9-10.8) fL Neut # (Auto) (1.5-6.6) 10^3/uL Lymph # (Auto) (1.5-3.5) 10^3/uL Garland # (Auto) (0.0-1.0) 10^3/uL Eos # (Auto) (0.0-0.7) 10^3/uL Baso # (Auto) (0.0-0.1) 10^3/uL Absolute Nucleated RBC x10^3/uL Nucleated RBC % /100WBC PT 14.9 H (9.9-12.6) secs INR 1.3 H (0.8-1.2) APTT 27.5 (24.9-33.3) secs Sodium 136 (135-145) mmol/L Potassium 3.3 L (3.5-5.0) mmol/L Chloride 93 L (101-111) mmol/L Carbon Dioxide 31 (21-32) mmol/L Anion Gap 12.0 (6-13) BUN 21 H (6-20) mg/dL Creatinine 0.9 (0.4-1.0) mg/dL Estimated GFR (MDRD) 59 L (>89) Glucose 146 H (70-100) mg/dL Calcium 9.2 (8.5-10.3) mg/dL Total Bilirubin 0.8 (0.2-1.0) mg/dL AST 23 (10-42) IU/L ALT 19 (10-60) IU/L Alkaline Phosphatase 75 (42-121) IU/L Troponin I < 0.04 (<0.49) ng/mL Total Protein 7.3 (6.7-8.2) g/dL Albumin 3.3 (3.2-5.5) g/dL Globulin 4.0 (2.1-4.2) g/dL Albumin/Globulin Ratio 0.8 L (1.0-2.2) Lipase 30 (22-51) U/L Blood Type Antibody Screen 12/26/17 Range/Units 16:14 WBC 12.1 H (4.8-10.8) x10^3/uL RBC 4.09 L (4.20-5.40) 10^6/uL Hgb 11.1 L (12.0-16.0) g/dL Hct 35.1 L (37.0-47.0) % MCV 86.0 (81.0-99.0) fL MCH 27.2 (27.0-31.0) pg MCHC 31.6 L (32.0-36.0) g/dL RDW 16.0 H (12.0-15.0) % Plt Count 388 (130-450) 10^3/uL MPV 7.2 L (7.9-10.8) fL Neut # (Auto) 10.0 H (1.5-6.6) 10^3/uL Lymph # (Auto) 1.1 L (1.5-3.5) 10^3/uL [place] # (Auto) 1.0 (0.0-1.0) 10^3/uL Eos # (Auto) 0.0 (0.0-0.7) 10^3/uL Baso # (Auto) 0.0 (0.0-0.1) 10^3/uL Absolute Nucleated RBC 0.00 x10^3/uL Nucleated RBC % 0.0 /100WBC PT (9.9-12.6) secs INR (0.8-1.2) APTT (24.9-33.3) secs Sodium (135-145) mmol/L Potassium (3.5-5.0) mmol/L Chloride (101-111) mmol/L Carbon Dioxide (21-32) mmol/L Anion Gap (6-13) BUN (6-20) mg/dL Creatinine (0.4-1.0) mg/dL Estimated GFR (MDRD) (>89) Glucose (70-100) mg/dL Calcium (8.5-10.3) mg/dL Total Bilirubin (0.2-1.0) mg/dL AST (10-42) IU/L ALT (10-60) IU/L Alkaline Phosphatase (42-121) IU/L Troponin I (<0.49) ng/mL Total Protein (6.7-8.2) g/dL Albumin (3.2-5.5) g/dL Globulin (2.1-4.2) g/dL Albumin/Globulin Ratio (1.0-2.2) Lipase (22-51) U/L Blood Type Antibody Screen ABX Reporting Has patient been on IV antibiotics over the past 48 hours?: Yes Assessment/Plan - Problem List (1) Hip fracture Impression: Closed, displaced right subcapital hip fracture in active elderly patient. Dr. Loaiza explained risk/benefits of surgery; no further questions. PLAN: NPO IVF Lovenox for DVT/PE prophylaxis, cefazolin for pre-op abx and morphine for pain EKG, Chest x-ray and coags completed - Surgery planned for afternoon Qualifiers: Encounter type: initial encounter Fracture type: closed Laterality: right Qualified Code(s): S72.001A - Fracture of unspecified part of neck of right femur, initial encounter for closed fracture (2) Essential hypertension Impression: Blood pressure levels from 180-136 systolic to 138-53 diastolic. Patient chronic problem taking furosemide and carvedilol. Plan: continue home medication monitor vitals (3) Hypokalemia Impression: Supplemented with 1 dose of p.o. potassium. N.p.o. since midnight. Recheck potassium reveals 3.8. (4) Normocytic anemia Impression: chronic. Present in 2017. Plan: check anemia panel stool for occult blood
[2017-12-27] MEDS ORDERED: ceFAZolin 2 GM/50 ML 2 GM/50 ML BAG IV SCH (12:00)
[2017-12-27] MEDS ORDERED: BUPIVACAINE 0.25%-EPI 1:200000 PF 30 ML VIAL ONE (12:37)
--- NOTE | 2017-12-27 13:16 | PROVIDER PROGRESS NOTE ---
Subjective - Prog Note Date Prog Note Date: 12/27/17 Prog Note Time: 13:15 - Subjective Pt reports feeling: No change Objective - Vital Signs/Intake & Output Vital Signs: Vital Signs x48h Temp Pulse Resp BP Pulse Ox 12/27/17 07:38 36.8 C 71 19 153/62 H 90 L Intake & Output: Intake & Output 12/24/17 12/25/17 12/26/17 12/27/17 23:59 23:59 23:59 23:59 Intake Total 654.584 3402.75 Output Total 500 600 Balance 147.083 507.75 - Lab Results Fish Bones: 12/27/17 04:25 12/27/17 04:25 Other Labs: Lab Results x24hrs 12/27/17 12/27/17 12/27/17 Range/Units 04:25 04:25 04:25 WBC 10.3 (4.8-10.8) x10^3/uL RBC 3.57 L (4.20-5.40) 10^6/uL Hgb 9.8 L (12.0-16.0) g/dL Hct 30.8 L (37.0-47.0) % MCV 86.3 (81.0-99.0) fL MCH 27.3 (27.0-31.0) pg MCHC 31.7 L (32.0-36.0) g/dL RDW 15.7 H (12.0-15.0) % Plt Count 314 (130-450) 10^3/uL MPV 7.2 L (7.9-10.8) fL Neut # (Auto) 7.4 H (1.5-6.6) 10^3/uL Lymph # (Auto) 1.7 (1.5-3.5) 10^3/uL Clarke # (Auto) 0.9 (0.0-1.0) 10^3/uL Eos # (Auto) 0.3 (0.0-0.7) 10^3/uL Baso # (Auto) 0.1 (0.0-0.1) 10^3/uL Absolute Nucleated RBC 0.01 x10^3/uL Nucleated RBC % 0.1 /100WBC PT (9.9-12.6) secs INR (0.8-1.2) APTT (24.9-33.3) secs Sodium 137 (135-145) mmol/L Potassium 3.8 (3.5-5.0) mmol/L Chloride 100 L (101-111) mmol/L Carbon Dioxide 27 (21-32) mmol/L Anion Gap 10.0 (6-13) BUN 20 (6-20) mg/dL Creatinine 0.8 (0.4-1.0) mg/dL Estimated GFR (MDRD) 68 L (>89) Glucose 120 H (70-100) mg/dL Calcium 8.4 L (8.5-10.3) mg/dL Total Bilirubin (0.2-1.0) mg/dL AST (10-42) IU/L ALT (10-60) IU/L Alkaline Phosphatase (42-121) IU/L Troponin I (<0.49) ng/mL Total Protein (6.7-8.2) g/dL Albumin (3.2-5.5) g/dL Globulin (2.1-4.2) g/dL Albumin/Globulin Ratio (1.0-2.2) Lipase (22-51) U/L Blood Type A POSITIVE Antibody Screen NEGATIVE 12/26/17 12/26/17 12/26/17 Range/Units 16:14 16:14 16:14 WBC (4.8-10.8) x10^3/uL RBC (4.20-5.40) 10^6/uL Hgb (12.0-16.0) g/dL Hct (37.0-47.0) % MCV (81.0-99.0) fL MCH (27.0-31.0) pg MCHC (32.0-36.0) g/dL RDW (12.0-15.0) % Plt Count (130-450) 10^3/uL MPV (7.9-10.8) fL Neut # (Auto) (1.5-6.6) 10^3/uL Lymph # (Auto) (1.5-3.5) 10^3/uL Clarke # (Auto) (0.0-1.0) 10^3/uL Eos # (Auto) (0.0-0.7) 10^3/uL Baso # (Auto) (0.0-0.1) 10^3/uL Absolute Nucleated RBC x10^3/uL Nucleated RBC % /100WBC PT 14.9 H (9.9-12.6) secs INR 1.3 H (0.8-1.2) APTT 27.5 (24.9-33.3) secs Sodium 136 (135-145) mmol/L Potassium 3.3 L (3.5-5.0) mmol/L Chloride 93 L (101-111) mmol/L Carbon Dioxide 31 (21-32) mmol/L Anion Gap 12.0 (6-13) BUN 21 H (6-20) mg/dL Creatinine 0.9 (0.4-1.0) mg/dL Estimated GFR (MDRD) 59 L (>89) Glucose 146 H (70-100) mg/dL Calcium 9.2 (8.5-10.3) mg/dL Total Bilirubin 0.8 (0.2-1.0) mg/dL AST 23 (10-42) IU/L ALT 19 (10-60) IU/L Alkaline Phosphatase 75 (42-121) IU/L Troponin I < 0.04 (<0.49) ng/mL Total Protein 7.3 (6.7-8.2) g/dL Albumin 3.3 (3.2-5.5) g/dL Globulin 4.0 (2.1-4.2) g/dL Albumin/Globulin Ratio 0.8 L (1.0-2.2) Lipase 30 (22-51) U/L Blood Type Antibody Screen 12/26/17 Range/Units 16:14 WBC 12.1 H (4.8-10.8) x10^3/uL RBC 4.09 L (4.20-5.40) 10^6/uL Hgb 11.1 L (12.0-16.0) g/dL Hct 35.1 L (37.0-47.0) % MCV 86.0 (81.0-99.0) fL MCH 27.2 (27.0-31.0) pg MCHC 31.6 L (32.0-36.0) g/dL RDW 16.0 H (12.0-15.0) % Plt Count 388 (130-450) 10^3/uL MPV 7.2 L (7.9-10.8) fL Neut # (Auto) 10.0 H (1.5-6.6) 10^3/uL Lymph # (Auto) 1.1 L (1.5-3.5) 10^3/uL Clarke # (Auto) 1.0 (0.0-1.0) 10^3/uL Eos # (Auto) 0.0 (0.0-0.7) 10^3/uL Baso # (Auto) 0.0 (0.0-0.1) 10^3/uL Absolute Nucleated RBC 0.00 x10^3/uL Nucleated RBC % 0.0 /100WBC PT (9.9-12.6) secs INR (0.8-1.2) APTT (24.9-33.3) secs Sodium (135-145) mmol/L Potassium (3.5-5.0) mmol/L Chloride (101-111) mmol/L Carbon Dioxide (21-32) mmol/L Anion Gap (6-13) BUN (6-20) mg/dL Creatinine (0.4-1.0) mg/dL Estimated GFR (MDRD) (>89) Glucose (70-100) mg/dL Calcium (8.5-10.3) mg/dL Total Bilirubin (0.2-1.0) mg/dL AST (10-42) IU/L ALT (10-60) IU/L Alkaline Phosphatase (42-121) IU/L Troponin I (<0.49) ng/mL Total Protein (6.7-8.2) g/dL Albumin (3.2-5.5) g/dL Globulin (2.1-4.2) g/dL Albumin/Globulin Ratio (1.0-2.2) Lipase (22-51) U/L Blood Type Antibody Screen - Other Results/Comments Other Results/Comments: Exam: no change Assessment/Plan - Problem List (1) Hip fracture Impression: Stable. Ready to proceed to surgery PLAN: To OR for derrell-arthroplasty as planned Qualifiers: Encounter type: initial encounter Fracture type: closed Laterality: right Qualified Code(s): S72.001A - Fracture of unspecified part of neck of right femur, initial encounter for closed fracture
[2017-12-27] MEDS ORDERED: SUGAMMADEX 500 MG/5 ML VIAL IVP ONE (13:44)
[2017-12-27] MEDS ORDERED: SUGAMMADEX 200 MG/2 ML VIAL IVP ONE (13:44)
[2017-12-27] MEDS ORDERED: BUPIVACAINE 0.25%-EPI 1:200000 PF 10 ML VIAL SUBQ ONE (14:00)
[2017-12-27] MEDS ORDERED: ROCURONIUM 50 MG/5 ML VIAL IVP ONE (14:15)
[2017-12-27] MEDS ORDERED: PROPOFOL 200 MG/20 ML VIAL IVP ONE (14:15)
[2017-12-27] MEDS ORDERED: ONDANSETRON 4 MG/2 ML VIAL IVP ONE (14:15)
[2017-12-27] MEDS ORDERED: LIDOCAINE-MPF 2% 5 ML VIAL IM ONE (14:15)
[2017-12-27] MEDS ORDERED: MIDAZOLAM 2 MG/2 ML VIAL IVP ONE (14:15)
[2017-12-27] MEDS ORDERED: DEXAMETHASONE 4 MG/ML VIAL IVP ONE (14:15)
[2017-12-27] MEDS ORDERED: LACTATED RINGERS 1,000 ML IV ONE (16:22)
--- NOTE | 2017-12-27 16:23 | OPERATIVE REPORT ---
Operative Report - General Admit Date: 12/26/17 Procedure Date: 12/27/17 Planned Procedure: Right cementless hip derrell-arthroplasty Pre-Op Diagnosis: Displaced right subcapital hip fracture Procedure Performed: Right cementless hip derrell-arthroplasty Post Op Diagnosis: Same - Procedure Note Primary Surgeon: Quique Loaiza MD Secondary Surgeon: None Anesthesia Provider: Gilson Raines CRNA Anesthesia Technique: General ET tube Pathology: Right femoral head IV Fluids (mL): 1,100 Estimated Blood Loss (mL): 250 Complications: Difficult intubation
[2017-12-27] MEDS ORDERED: SENNA 8.6 MG TABLET PO PRN (16:24)
[2017-12-27] MEDS ORDERED: ACETAMINOPHEN 325 MG TABLET PO PRN (16:24)
[2017-12-27] MEDS ORDERED: SODIUM CHLORIDE FLUSH 0.9% 10 ML SYRINGE IVP PRN (16:24)
[2017-12-27] MEDS ORDERED: PROCHLORPERAZINE 10 MG/2 ML VIAL IVP PRN (16:24)
[2017-12-27] MEDS ORDERED: ONDANSETRON 4 MG/2 ML VIAL IVP PRN (16:24)
[2017-12-27] MEDS ORDERED: SODIUM CHLORIDE FLUSH 0.9% 10 ML SYRINGE IVP SCH (17:00)
[2017-12-27] MEDS: D5.45NS W/20 MEQ KCL 1,000 ML IV SCH (17:15)
[2017-12-27] MEDS: methylPREDNISolone SUCCINATE 125 MG/2 ML VIAL IVP SCH ×2 (17:21→22:24)
[2017-12-27 17:28] LABS: ABG BASE EXCESS 0.7 mmol/L (-2.0-3.0); ABG HCO3 24.3 mmol/L (22.0-26.0); ABG OXYGEN SATURATION 96 % (94-98); ABG PCO2 35 mmHg (34-45); ABG PH 7.46 (7.35-7.45); ABG PO2 78 mmHg (80-100); ABG TCO2 25.4 MMOL/L (21.0-29.0); ALLEN TEST POSITIVE
[2017-12-27] MEDS: PROPOFOL 1000 MG/100 ML 100 ML IV SCH (17:29)
--- NOTE | 2017-12-27 17:34 | XRAY Report ---
Reason: Post op right hip derrell-arthroplasty Procedure Date: 12/27/2017 Accession Number: [id number] / [id number] Procedure: XR - Hip w/Pelvis 1V LT CPT Code: FULL RESULT: EXAM: LEFT HIP WITH PELVIS RADIOGRAPHY EXAM DATE: 12/27/2017 05:03 PM. CLINICAL HISTORY: Post op right hip derrell-arthroplasty. COMPARISON: HIP W/PELVIS 2-3V RT 12/26/2017 3:03 PM. TECHNIQUE: 1 views. FINDINGS: Bones and Joints: No fractures or bone lesion. A right hip arthroplasty has been performed. No unexpected periprosthetic lucency or other evidence of loosening. The contralateral hip and other joint spaces are unremarkable. Stable appearance of left hip prosthesis. Soft Tissues: Normal. No soft tissue swelling. IMPRESSION: Expected appearance of right hip arthroplasty. [facility]
[2017-12-27] MEDS: MORPHINE 2 MG/ML CARPUJECT IVP PRN ×3 (17:35→22:24)
[2017-12-27] MEDS: ACETAMINOPHEN 1,000 MG/100 ML 100 ML IV PRN (18:13)
[2017-12-27] MEDS: SODIUM CHLORIDE FLUSH 0.9% 10 ML SYRINGE IVP PRN ×3 (18:21→22:26)
--- NOTE | 2017-12-27 18:24 | OPERATIVE REPORT ---
DATE OF SERVICE: 12/27/2017 Physician: Carlo Loaiza MD POSTOPERATIVE DIAGNOSIS: Closed displaced right subcapital hip fracture. POSTOPERATIVE DIAGNOSIS: Closed displaced right subcapital hip fracture. PROCEDURE PERFORMED: Cementless right hip hemiarthroplasty - [employer] system. Used a 13 femoral stem, 0 mm standard neck length, femoral head with an the depth of 45 mm. SURGEON: Carlo Loaiza MD VOCATIONAL REHABILITATION SUPERVISOR: None (2 scrub technicians assisted). ANESTHESIA: Intubation. DESCRIPTION OF PROCEDURE: The patient was taken to the operating room on the afternoon of 12/27/2017 , where she was placed under a general anesthetic through intubation. There was some difficulty with the intubation, but with fiberoptic assistance this was performed. Once intubated and asleep, she w as then positioned onto the pegboard table in a lateral decubitus position right side up. This was h eld in place with several pegs and pressure points were adequately cushioned including an axillary ro ll and additional padding underneath the left lateral knee region. We checked preoperatively that in this position her legs appeared to be equal in length when measured with the knee slightly flexed an d checking with the medial malleoli of both legs. We then prepped and draped the hip region and leg free in the usual fashion for our procedure. We then made a curvilinear skin incision centered over the greater trochanter using a posterolateral approach to the hip. Hemostasis was obtained with electrocautery. We dissected down to the external rotators. Electrocautery was then used to detach the external rotators as well as to perform a caps ulotomy. Again, hemostasis obtained with electrocautery. We then made an H-type incision into the p osterior capsule to expose the femoral neck and head within the acetabulum. The H flaps were then he ld away from the joint using 2-0 stay stitches. Having exposed the femoral neck we then placed the l eg to visualize the neck further. One fingerbreadth above the level of the lesser trochanter was whe re we made our osteotomy, using our osteotomy guide to help create the osteotomy at the base of the f emoral neck. Femoral neck fragment was then removed. We then identified the femoral head. Using a hip corkscrew device, we were able to insert this in the femoral head and with the hip skid retirement assistant s, we were able to remove the femoral head from the joint. Using calipers we determined that the fem oral head would be a 45 mm outside diameter. We cleared the fovea and many bony fragments from the j oint using a large rongeur. This joint was then irrigated out with a pulse lavage. Next, we inserte d as a trial a 45 mm diameter femoral head prosthesis. We were able to reduce this easily and this a ppeared to have a good fit without any pistoning when pulling on the prostheses and showing good free rotation without any subluxation. The trial was then removed from the acetabulum. Next, we turned our attention to the proximal femur. Using a box osteotome, we removed some of the bone out laterally at our osteotomy site. The [employer] awl was then used to insert down the femoral shaft. We then sequentially reamed the proximal femur with the rigid femoral reamers, starting with the 9 mm reamer and advanced sequentially until we dete rmined that a 13 mm prosthesis would be utilized since this was the level where we were meeting some resistance and was starting to ream the femoral cortex. We then broached the proximal femur starting with a #12 broach. This was followed by the #13 broach. This seated down to the level our osteotom y quite nicely. We then attempted to do a trial reduction with a trial prostheses. A standard neck with 0 mm length and a femoral head with a 45 mm outside diameter was then inserted onto our seated b owen. We reduced the hip satisfactory. Noted the patient had full extension with the leg externall y rotated without any impingement. There was no pistoning on longitudinal traction on the leg. The leg was stable in sleep position. Finally, with the leg flexed 90 degrees in neutral abduction, we w ere able to internally rotate the leg to about 80 degrees without any subluxation of our femoral pros theses. Satisfied with this, we then removed the femoral head prostheses off of the broach and out o f the acetabulum. The trochanter rasp was inserted onto our inserted a broach and we milled the prox imal femur. Next, we removed the broach from the femoral canal. We then irrigated the wound out tho roughly with pulse lavage to the proximal femur and the acetabulum. We then used our selected prostheses and had them inserted. This was a #13 femoral stem; a standard neck with 0 mm length; a bipolar femoral head component with outside diameter 45 mm. First off we in serted the selected femoral stem component using a mallet to drive the prostheses down to the level o f our osteotomy. Next, we inserted our bipolar femoral head component onto out inserted femoral stem component. This was tapped into place with a hip pusher and mallet. We then gently reduced the hip . Palpation felt there was no soft tissue in the position and the reduction. We then placed the hip through a range of motion. The hip again easily extended with no impingement with it in full extens ion and externally rotated. No pistoning was noted with longitudinal traction of the leg. We placed the leg in sleep position satisfactory. Finally, with the hip flexed at 90 degrees and in neutral a bduction, we were able to internally rotate to about 70 degrees before any subluxation of the hip. S atisfied with this, we then placed the leg in a neutral position and near full extension. We irrigat ed the wounds out thoroughly with the pulse lavage again. We reattached the capsular flaps using a f ree needle with our stay stitches. With 2-0 Vicryl we then reattached the short external rotators, Finally, a [id number] stitch of 0 Polysorb was used to reapproximate the fascia mary incision. Buried simple stitches of 2-0 Vicryl were used to approximate the subcutaneous tissues. Finally, ski n faustino used to approximate the skin edge. This was done with the hip adducted. A total of 30 mL of 0.25% Marcaine with epinephrine was then used to provide local anesthesia of our incision in our d eep incision. We then washed the wound and dressed it with a silver dressing. The leg was placed wi th a hip abductor pillow in place as we repositioned the patient from a lateral decubitus position to a supine position. Anesthesia then deflated the air cuff of the intubation tube. Not hearing any air leakage it was det ermined that she should keep the airway in because of laryngeal and tracheal edema. She was to spend the night in the ICU on the respirator. ESTIMATED BLOOD LOSS: 250 mL REPLACEMENT: 1100 mL crystalloid. INTRAOPERATIVE COMPLICATIONS: Tracheal edema from a difficult intubation requiring overnight observa tion in the intensive care unit on the respirator. PLAN: The patient's orthopedic postoperative course should be a routine one. She may be up weightbe aring as tolerated on the right lower extremity with ambulation with a walker. Total hip precautions will be observed for the next 3 months. head of her bed should be limited to 70 degrees or less; hi p abductor pillow should be kept between her legs while she is in bed for the first month to 6 weeks. May go with pillows between her legs thereafter while in bed. TD: 12/27/2017 17:03
--- NOTE | 2017-12-27 18:48 | XRAY Report ---
Reason: ETT placement, OG placement Procedure Date: 12/27/2017 Accession Number: [id number] / [id number] Procedure: XR - Chest 1 View X-Ray CPT Code: 12738 FULL RESULT: EXAM: CHEST RADIOGRAPHY EXAM DATE: 12/27/2017 06:14 PM. CLINICAL HISTORY: ETT placement, OG placement. COMPARISON: Chest x-ray on 12/26/2017. TECHNIQUE: 1 view. FINDINGS: Lungs/Pleura: There is likely trace left pleural effusion with bilateral interstitial and alveolar opacities. No pneumothorax. Mediastinum: Mild cardiomegaly with endotracheal tube in the distal trachea. Atherosclerosis. There is either some elevation of the left hemidiaphragm or a large hiatal hernia with the patient's orogastric tube extending to the left and coiling over the left upper quadrant. Other: None. IMPRESSION: 1. Cardiomegaly with pulmonary edema pattern and likely trace left pleural effusion. 2. Endotracheal tube within the distal trachea. 3. Likely large hiatal hernia with orogastric tube coiled over the left hemidiaphragm and left upper quadrant. Considering this configuration is more likely is within the body of the stomach secondary to a large hiatal hernia. RADIA
[2017-12-27] MEDS: CHLORHEXIDINE GLUCONATE 15 ML UDC PO SCH (21:18)
[2017-12-28] MEDS: ceFAZolin 2 GM/50 ML 2 GM/50 ML BAG IV SCH ×2 (00:24→07:51)
[2017-12-28] MEDS: MORPHINE 2 MG/ML CARPUJECT IVP PRN ×3 (02:24→08:29)
[2017-12-28] MEDS: SODIUM CHLORIDE FLUSH 0.9% 10 ML SYRINGE IVP SCH ×3 (02:24→19:51)
[2017-12-28] MEDS: PROPOFOL 1000 MG/100 ML 100 ML IV SCH ×2 (02:48→19:51)
[2017-12-28] MEDS: D5.45NS W/20 MEQ KCL 1,000 ML IV SCH ×2 (03:47→14:36)
[2017-12-28 04:59] LABS: BASOPHILS % (AUTO) 0.1 %; EOSINOPHILS % (AUTO) 0.1 %; HGB - HEMOGLOBIN 9.9 g/dL (12.0-16.0); LYMPHOCYTES % (AUTO) 9.6 %; MEAN CORPUSCULAR HEMOGLOBIN 27.9 pg (27.0-31.0); MEAN CORPUSCULAR HGB CONC 31.1 g/dL (32.0-36.0); MEAN CORPUSCULAR VOLUME 89.7 fL (81.0-99.0); MEAN PLATELET VOLUME 7.9 fL (7.9-10.8); MONOCYTES # (AUTO) 0.3 10^3/uL (0.0-1.0); MONOCYTES % (AUTO) 2.7 %; NEUTROPHILS # (AUTO) 9.1 10^3/uL (1.5-6.6); NEUTROPHILS % (AUTO) 87.5 %; PLT - PLATELET COUNT 274 10^3/uL (130-450); RED BLOOD COUNT 3.53 10^6/uL (4.20-5.40); RED CELL DISTRIBUTION WIDTH 16.1 % (12.0-15.0); WHITE BLOOD COUNT 10.3 x10^3/uL (4.8-10.8)
[2017-12-28 05:03] LABS: CALCIUM 7.6 mg/dL (8.5-10.3); CREATININE 0.8 mg/dL (0.4-1.0)
[2017-12-28] MEDS: methylPREDNISolone SUCCINATE 125 MG/2 ML VIAL IVP SCH ×2 (06:14→14:25)
[2017-12-28] MEDS: SODIUM CHLORIDE FLUSH 0.9% 10 ML SYRINGE IVP PRN (06:17)
[2017-12-28] MEDS: PANTOPRAZOLE 40 MG VIAL IVP SCH (07:21)
[2017-12-28] MEDS: POLYETHYLENE GLYCOL 3350 17 GM PACKET PO SCH (08:30)
[2017-12-28] MEDS: CHLORHEXIDINE GLUCONATE 15 ML UDC PO SCH (10:01)
[2017-12-28] MEDS: ENOXAPARIN 30 MG/0.3 ML SYRINGE SUBQ SCH (10:13)
--- NOTE | 2017-12-28 11:20 | PROVIDER PROGRESS NOTE ---
Subjective - Prog Note Date Prog Note Date: 12/28/17 Prog Note Time: 11:18 - Subjective Pt reports feeling: Improved (Minimal hip pain. Breathing easily) Objective - Vital Signs/Intake & Output Vital Signs: Vital Signs x48h Temp Pulse Pulse Resp BP Pulse Ox 12/28/17 10:00 66 14 162/71 H 99 12/28/17 09:00 63 16 150/53 H 100 12/28/17 08:00 36.9 C 53 L 11 L 149/55 H 100 12/28/17 07:49 53 L 12/28/17 07:04 51 L 16 142/46 H 100 12/28/17 06:00 48 L 131 H 149/52 H 100 12/28/17 05:08 36.4 C L 52 L 10 L 130/47 L 100 12/28/17 04:00 57 L 15 175/74 H 100 12/28/17 03:58 57 L Intake & Output: Intake & Output 12/25/17 12/26/17 12/27/17 12/28/17 23:59 23:59 23:59 22:59 Intake Total 367.334 9421.279 759.367 Output Total 500 1470 555 Balance 364.936 0592.279 204.367 - Lab Results Fish Bones: 12/28/17 04:20 12/28/17 04:20 Other Labs: Lab Results x24hrs 12/28/17 12/28/17 12/27/17 Range/Units 04:20 04:20 17:25 WBC 10.3 (4.8-10.8) x10^3/uL RBC 3.53 L (4.20-5.40) 10^6/uL Hgb 9.9 L (12.0-16.0) g/dL Hct 31.7 L (37.0-47.0) % MCV 89.7 (81.0-99.0) fL MCH 27.9 (27.0-31.0) pg MCHC 31.1 L (32.0-36.0) g/dL RDW 16.1 H (12.0-15.0) % Plt Count 274 (130-450) 10^3/uL MPV 7.9 (7.9-10.8) fL Neut # (Auto) 9.1 H (1.5-6.6) 10^3/uL Lymph # (Auto) 1.0 L (1.5-3.5) 10^3/uL [place] # (Auto) 0.3 (0.0-1.0) 10^3/uL Eos # (Auto) 0.0 (0.0-0.7) 10^3/uL Baso # (Auto) 0.0 (0.0-0.1) 10^3/uL Absolute Nucleated RBC 0.00 x10^3/uL Nucleated RBC % 0.0 /100WBC Bld Gas Analysis Time 1725 Sample Site RIGHT RADIAL ABG pH 7.46 H (7.35-7.45) ABG pCO2 35 (34-45) mmHg ABG pO2 78 L (80-100) mmHg ABG HCO3 24.3 (22.0-26.0) mmol/L ABG Total CO2 25.4 (21.0-29.0) MMOL/L ABG O2 Saturation 96 (94-98) % ABG Base Excess 0.7 (-2.0-3.0) mmol/L Preet Test POSITIVE Respiration Rate 12 b/min O2 Delivery Device VENTILATOR Vent Mode SIMV FiO2 50.00 Tidal Volume 600 mL PEEP 5 cmH2O Pressure Support Vent 10 cmH2O Sodium 134 L (135-145) mmol/L Potassium 4.3 (3.5-5.0) mmol/L Chloride 101 (101-111) mmol/L Carbon Dioxide 24 (21-32) mmol/L Anion Gap 9.0 (6-13) BUN 20 (6-20) mg/dL Creatinine 0.8 (0.4-1.0) mg/dL Estimated GFR (MDRD) 68 L (>89) Glucose 210 H (70-100) mg/dL Calcium 7.6 L (8.5-10.3) mg/dL - Diagnostic Imaging Diagnostic Imaging Comments: XR show hip derrell-arthroplasty in good position; no new fracture; joint reduced - Other Results/Comments Other Results/Comments: EXAM: Leg lengths equal; symmetrical rotation. Mild pain with hip ROM> N/V ok distally. Assessment/Plan - Problem List (1) Hip fracture Impression: Satis post op PLAN: Mobilize in PT as tolerated. Qualifiers: Encounter type: initial encounter Fracture type: closed Laterality: right Qualified Code(s): S72.001A - Fracture of unspecified part of neck of right femur, initial encounter for closed fracture
--- NOTE | 2017-12-28 11:51 | PROVIDER PROGRESS NOTE ---
Subjective - Prog Note Date Prog Note Date: 12/28/17 Prog Note Time: 11:50 - Subjective Pt reports feeling: Improved Subjective: A difficult intubation preoperatively with her quite a bit of trauma resulted in bleeding, but no hypoxia. She underwent the surgery successfully. In the postoperative setting she was intubated, and this morning we have successfully extubated her. She is alert. Sitting up in her chair. Asking to eat. Complains of dry nose and wants some saline rinse for her nose. Pain is controlled. Denies chest pain, abdominal pain. Objective - Vital Signs/Intake & Output Vital Signs: Vital Signs x48h Temp Pulse Pulse Resp BP Pulse Ox 12/28/17 10:00 66 14 162/71 H 99 12/28/17 09:00 63 16 150/53 H 100 12/28/17 08:00 36.9 C 53 L 11 L 149/55 H 100 12/28/17 07:49 53 L 12/28/17 07:04 51 L 16 142/46 H 100 12/28/17 06:00 48 L 131 H 149/52 H 100 12/28/17 05:08 36.4 C L 52 L 10 L 130/47 L 100 12/28/17 04:00 57 L 15 175/74 H 100 12/28/17 03:58 57 L Intake & Output: Intake & Output 12/25/17 12/26/17 12/27/17 12/28/17 23:59 23:59 23:59 22:59 Intake Total 746.740 4652.279 759.367 Output Total 500 1470 555 Balance 475.537 1070.279 204.367 - Lab Results Fish Bones: 12/28/17 04:20 12/28/17 04:20 Other Labs: Lab Results x24hrs 12/28/17 12/28/17 12/27/17 Range/Units 04:20 04:20 17:25 WBC 10.3 (4.8-10.8) x10^3/uL RBC 3.53 L (4.20-5.40) 10^6/uL Hgb 9.9 L (12.0-16.0) g/dL Hct 31.7 L (37.0-47.0) % MCV 89.7 (81.0-99.0) fL MCH 27.9 (27.0-31.0) pg MCHC 31.1 L (32.0-36.0) g/dL RDW 16.1 H (12.0-15.0) % Plt Count 274 (130-450) 10^3/uL MPV 7.9 (7.9-10.8) fL Neut # (Auto) 9.1 H (1.5-6.6) 10^3/uL Lymph # (Auto) 1.0 L (1.5-3.5) 10^3/uL [place] # (Auto) 0.3 (0.0-1.0) 10^3/uL Eos # (Auto) 0.0 (0.0-0.7) 10^3/uL Baso # (Auto) 0.0 (0.0-0.1) 10^3/uL Absolute Nucleated RBC 0.00 x10^3/uL Nucleated RBC % 0.0 /100WBC Bld Gas Analysis Time 1725 Sample Site RIGHT RADIAL ABG pH 7.46 H (7.35-7.45) ABG pCO2 35 (34-45) mmHg ABG pO2 78 L (80-100) mmHg ABG HCO3 24.3 (22.0-26.0) mmol/L ABG Total CO2 25.4 (21.0-29.0) MMOL/L ABG O2 Saturation 96 (94-98) % ABG Base Excess 0.7 (-2.0-3.0) mmol/L Preet Test POSITIVE Respiration Rate 12 b/min O2 Delivery Device VENTILATOR Vent Mode SIMV FiO2 50.00 Tidal Volume 600 mL PEEP 5 cmH2O Pressure Support Vent 10 cmH2O Sodium 134 L (135-145) mmol/L Potassium 4.3 (3.5-5.0) mmol/L Chloride 101 (101-111) mmol/L Carbon Dioxide 24 (21-32) mmol/L Anion Gap 9.0 (6-13) BUN 20 (6-20) mg/dL Creatinine 0.8 (0.4-1.0) mg/dL Estimated GFR (MDRD) 68 L (>89) Glucose 210 H (70-100) mg/dL Calcium 7.6 L (8.5-10.3) mg/dL Assessment/Plan - Problem List (1) Difficult airway for intubation Impression: She is doing well this morning. I will stop IV Solu-Medrol. Transfer her from ICU status to MedSur status. Continue to monitor her carefully for swallowing difficulties or hypoxemia or stridor. Qualifiers: Encounter type: initial encounter Qualified Code(s): T88.4XXA - Failed or difficult intubation, initial encounter (2) Hip fracture Impression: Closed, displaced right subcapital hip fracture in active elderly patient. Dr. Loaiza explained risk/benefits of surgery.. Postop day #1 PLAN: PT and OT evaluation when able. Plan is to transfer her to [facility] for [facility] living facility rehab. That is a place she is identified. Lovenox for DVT/PE prophylaxis, cefazolin for pre-op abx and morphine for pain Qualifiers: Encounter type: initial encounter Fracture type: closed Laterality: right Qualified Code(s): S72.001A - Fracture of unspecified part of neck of right femur, initial encounter for closed fracture (2) Essential hypertension Impression: Yesterday she was from the 120s-160s systolic, 45-60 diastolic. This morning she is in the 130s-160s again. Diastolic is 45-71 Plan: continue home medication monitor vitals (3) Hypokalemia Impression: Supplemented with 1 dose of p.o. potassium. 3.3>3.8>4.3 today (4) Normocytic anemia present on admission and now w acute blood loss anemia from surgery. Impression: chronic. Present in 2017. Plan: check anemia panel stool for occult blood Qualifiers: Qualified Code(s): S72.001A - Fracture of unspecified part of neck of right femur, initial encounter for closed fracture
[2017-12-28] MEDS: ACETAMINOPHEN 1,000 MG/100 ML 100 ML IV PRN (11:59)
[2017-12-28 13:19] LABS: MEAN RETIC VALUE 120.9; RED BLOOD COUNT 3.64 10^6/uL (4.20-5.40)
[2017-12-28] MEDS: SODIUM CHLORIDE 0.65% NASAL SPRAY NAS PRN ×2 (13:23→23:21)
[2017-12-28 13:45] LABS: % IRON SATURATION 9 % (20-50); IRON 16 ug/dL (28-170); TOTAL IRON BINDING CAPACITY 185 ug/dL (250-450); TRANSFERRIN 132 mg/dL (192-382)
[2017-12-28 13:55] LABS: FERRITIN 191.4 ng/mL (11.0-306.8)
[2017-12-28] MEDS: traZODone 50 MG TABLET PO SCH (22:59)
[2017-12-29] MEDS: SODIUM CHLORIDE FLUSH 0.9% 10 ML SYRINGE IVP SCH ×3 (00:05→17:39)
[2017-12-29] MEDS: ACETAMINOPHEN 325 MG TABLET PO PRN ×3 (03:52→16:43)
[2017-12-29 05:01] LABS: BASOPHILS % (AUTO) 0.1 %; HGB - HEMOGLOBIN 9.1 g/dL (12.0-16.0); LYMPHOCYTES # (AUTO) 1.2 10^3/uL (1.5-3.5); LYMPHOCYTES % (AUTO) 6.5 %; MEAN CORPUSCULAR HEMOGLOBIN 27.3 pg (27.0-31.0); MEAN CORPUSCULAR HGB CONC 31.2 g/dL (32.0-36.0); MEAN CORPUSCULAR VOLUME 87.5 fL (81.0-99.0); MEAN PLATELET VOLUME 7.3 fL (7.9-10.8); MONOCYTES # (AUTO) 0.7 10^3/uL (0.0-1.0); NEUTROPHILS # (AUTO) 16.4 10^3/uL (1.5-6.6); NEUTROPHILS % (AUTO) 89.4 %; PLT - PLATELET COUNT 298 10^3/uL (130-450); RED BLOOD COUNT 3.34 10^6/uL (4.20-5.40); WHITE BLOOD COUNT 18.4 x10^3/uL (4.8-10.8)
[2017-12-29] MEDS: PANTOPRAZOLE 40 MG VIAL IVP SCH (06:30)
--- NOTE | 2017-12-29 08:09 | PROVIDER PROGRESS NOTE ---
Subjective - Prog Note Date Prog Note Date: 12/29/17 Prog Note Time: 08:13 - Subjective Pt reports feeling: Improved Subjective: she is awake, alert, and just abolutely delightful. Has lots and lots of advice that she gives to everyone who walks in the door. Current Medications - Current Medications Current Medications: Active Medications Acetaminophen (Tylenol) 650 mg PO Q4HR PRN PRN Reason: Pain 1 to 4 Last Admin: 12/29/17 03:52 Dose: 650 mg Acetaminophen (Tylenol) 650 - 975 mg PO Q4HR PRN PRN Reason: PAIN Carvedilol (Coreg) 12.5 mg PO BID [facility] Docusate Sodium (Colace 100mg Capsule) 100 mg PO BID PRN PRN Reason: Constipation Enoxaparin Sodium (Lovenox) 30 mg SUBQ DAILY [facility] Last Admin: 12/28/17 10:13 Dose: 30 mg Furosemide (Lasix) 20 mg PO DAILY [facility] Acetaminophen (Ofirmev) 100 mls @ 400 mls/hr IV Q6HR PRN PRN Reason: PAIN Last Infusion: 12/28/17 12:15 Dose: Infused Morphine Sulfate (Morphine (Carpuject)) 2 mg IVP Q2HR PRN PRN Reason: Pain 8 to 10 Last Admin: 12/28/17 08:29 Dose: 2 mg Ondansetron HCl (Zofran Inj) 4 mg IVP Q6HR PRN PRN Reason: Nausea / Vomiting Last Admin: 12/28/17 12:14 Dose: 4 mg Ondansetron HCl (Zofran Odt) 4 mg TL Q6HR PRN PRN Reason: Nausea / Vomiting Oxybutynin Chloride (Ditropan) 5 mg PO QPM [facility] Oxycodone HCl (Roxicodone) 5 mg PO Q4HR PRN PRN Reason: Pain 5 to 7 Pantoprazole Sodium (Protonix) 40 mg IVP QDAC [facility] Last Admin: 12/29/17 06:30 Dose: 40 mg Polyethylene Glycol (Miralax) 17 gm PO DAILY [facility] Last Admin: 12/28/17 08:30 Dose: Not Given Prednisone (Deltasone) 7.5 mg PO DAILY [facility] Prochlorperazine Edisylate (Compazine Inj) 10 mg IVP Q6HR PRN PRN Reason: Nausea / Vomiting Senna (Senokot) 17.2 mg PO Q12H PRN PRN Reason: Constipation Sodium Chloride (Normal Saline Flush 0.9%) 10 ml IVP PRN PRN PRN Reason: NEEDED PER PROVIDER ORDERS Last Admin: 12/28/17 06:17 Dose: 10 ml Sodium Chloride (Normal Saline Flush 0.9%) 10 ml IVP 0100,0900,1700 [facility] Last Admin: 12/29/17 00:05 Dose: Not Given Sodium Chloride ([place]) 2 sprays MARISELA Q4HR PRN PRN Reason: Nasal Congestion Last Admin: 12/28/17 23:21 Dose: 2 sprays Trazodone HCl (Desyrel) 25 mg PO QPM [facility] Last Admin: 12/28/17 22:59 Dose: 25 mg Carvedilol [Coreg] 12.5 mg PO BID 12/26/17 Cholecalciferol (Vitamin D3) [Vitamin D] 2,000 unit PO DAILY 12/26/17 Furosemide [Lasix] 20 mg PO DAILY 12/26/17 Magnesium Oxide [Mag Ox] 400 mg PO DAILY 12/26/17 Omeprazole 20 mg PO DAILY 12/26/17 Oxybutynin [Ditropan] 5 mg PO QPM 12/26/17 Potassium Chloride [Micro-K] 10 meq PO DAILY 12/26/17 Ubiquinol 100 mg PO DAILY 12/26/17 predniSONE [Prednisone] 7.5 mg PO DAILY 12/26/17 traZODone [Desyrel] 25 mg PO QPM 12/26/17 Vit A/Vit C/Vit E/Zinc/Copper [Preservision Areds Softgel] 2 each PO DAILY 12/27/17 Objective - Vital Signs/Intake & Output Reviewed Vital Signs: Yes Vital Signs: Vital Signs x48h Temp Pulse Resp BP BP Pulse Ox 12/29/17 08:00 36.9 C 65 18 197/81 H 191/70 H 89 L 12/29/17 03:43 36.6 C 71 22 182/82 H 94 Intake & Output: Intake & Output 12/27/17 12/28/17 12/28/17 12/29/17 00:59 00:59 23:59 23:59 Intake Total 900 Output Total 1650 Balance -750 - Objective General Appearance: positive: No acute distress, Alert, Other (vivacious, elderly female who states her fevent belief in "our lord" and how he keeps her healthy) Eyes Bilateral: positive: PERRL, EOMI ENT: positive: Pharynx nml Neck: positive: No JVD. negative: Stiff neck, Carotid bruit Respiratory: positive: Chest non-tender. negative: Wheezes, Rales, Rhonchi Cardiovascular: positive: Regular rate & rhythm. negative: Gallop/S4, Friction rub Abdomen: positive: Non-tender, No organomegaly, Nml bowel sounds, No distention Skin: positive: Warm, Dry Extremities: positive: No pedal edema. negative: Full ROM (right hip) Neurologic/Psychiatric: positive: Oriented x3, CN's nml (2-12), Motor nml - Lab Results Fish Bones: 12/29/17 04:35 12/28/17 04:20 Other Labs: Lab Results x24hrs 12/29/17 12/28/17 12/28/17 Range/Units 04:35 13:14 13:14 WBC 18.4 H (4.8-10.8) x10^3/uL RBC 3.34 L (4.20-5.40) 10^6/uL Hgb 9.1 L (12.0-16.0) g/dL Hct 29.2 L (37.0-47.0) % MCV 87.5 (81.0-99.0) fL MCH 27.3 (27.0-31.0) pg MCHC 31.2 L (32.0-36.0) g/dL RDW 16.0 H (12.0-15.0) % Plt Count 298 (130-450) 10^3/uL MPV 7.3 L (7.9-10.8) fL Reticulocyte % (Auto) (0.5-2.3) % Neut # (Auto) 16.4 H (1.5-6.6) 10^3/uL Lymph # (Auto) 1.2 L (1.5-3.5) 10^3/uL Ross # (Auto) 0.7 (0.0-1.0) 10^3/uL Eos # (Auto) 0.0 (0.0-0.7) 10^3/uL Baso # (Auto) 0.0 (0.0-0.1) 10^3/uL Absolute Nucleated RBC 0.00 x10^3/uL Nucleated RBC % 0.0 /100WBC Absolute Retic (0.020-0.110) 10^6/uL Iron (28-170) ug/dL TIBC (250-450) ug/dL % Saturation (20-50) % Transferrin (192-382) mg/dL Ferritin 191.4 (11.0-306.8) ng/mL Lactate Dehydrogenase 258 H (91-225) IU/L Vitamin B12 5790 H (180-914) pg/mL 12/28/17 12/28/17 Range/Units 13:14 13:14 WBC (4.8-10.8) x10^3/uL RBC 3.64 L (4.20-5.40) 10^6/uL Hgb (12.0-16.0) g/dL Hct (37.0-47.0) % MCV (81.0-99.0) fL MCH (27.0-31.0) pg MCHC (32.0-36.0) g/dL RDW (12.0-15.0) % Plt Count (130-450) 10^3/uL MPV (7.9-10.8) fL Reticulocyte % (Auto) 1.72 (0.5-2.3) % Neut # (Auto) (1.5-6.6) 10^3/uL Lymph # (Auto) (1.5-3.5) 10^3/uL Ross # (Auto) (0.0-1.0) 10^3/uL Eos # (Auto) (0.0-0.7) 10^3/uL Baso # (Auto) (0.0-0.1) 10^3/uL Absolute Nucleated RBC x10^3/uL Nucleated RBC % /100WBC Absolute Retic 0.063 (0.020-0.110) 10^6/uL Iron 16 L (28-170) ug/dL TIBC 185 L (250-450) ug/dL % Saturation 9 L (20-50) % Transferrin 132 L (192-382) mg/dL Ferritin (11.0-306.8) ng/mL Lactate Dehydrogenase (91-225) IU/L Vitamin B12 (180-914) pg/mL ABX Reporting Has patient been on IV antibiotics over the past 48 hours?: No Assessment/Plan - Problem List (1) Hip fracture Impression: Impression: Closed, displaced right subcapital hip fracture in active elderly patient. Dr. Loaiza explained risk/benefits of surgery.. Postop day #2 PLAN: PT and OT evaluation when able and that should be today Plan is to transfer her to [facility] for halfway facility rehab. Maybe to be done POD #3 or #4 depending on PT eval. That is a place she is identified. Lovenox for DVT/PE prophylaxis, cefazolin for pre-op abx and morphine for pain Qualifiers: Encounter type: initial encounter Fracture type: closed Laterality: right Qualified Code(s): S72.001A - Fracture of unspecified part of neck of right femur, initial encounter for closed fracture (2) Essential hypertension Impression: Yesterday's blood pressure was 132 [id number]. This morning she is 197/81. With his widened pulse pressure I would like to get an echocardiogram Plan: continue home medication monitor vitals (3) Hypokalemia Impression: Supplemented with 1 dose of p.o. potassium. 3.3>3.8>4.3 today (4) chronic iron deficiency anemia present on admission and now w acute blood loss anemia from surgery. Impression: chronic. Present in 2017. Laboratory Tests 12/28/17 12/28/17 12/28/17 13:14 13:14 13:14 Iron 16 L TIBC 185 L % Saturation 9 L Transferrin 132 L Ferritin 191.4 Lactate Dehydrogenase 258 H Vitamin B12 5790 H Plan: start iron supplement stool for occult blood (5) Difficult airway for intubation Impression: She is doing well after extubation. I stopped IV Solu-Medrol. Transferred her from ICU status to [facility] status. Continue to monitor her carefully for swallowing difficulties or hypoxemia or stridor. The steroids resulted in demargination with elevation of WBC and hyperglycemia. I expect those to resolve now that steroids have been stopped. Qualifiers: Encounter type: initial encounter Qualified Code(s): T88.4XXA - Failed or d ifficult intubation, initial encounter Qualifiers: Qualified Code(s): S72.001A - Fracture of unspecified part of neck of right femur, initial encounter for closed fracture
[2017-12-29] MEDS: FUROSEMIDE 20 MG TABLET PO SCH (08:19)
[2017-12-29] MEDS: CARVEDILOL 12.5 MG TABLET PO SCH ×2 (08:19→20:53)
[2017-12-29] MEDS: predniSONE 5 MG TABLET PO SCH (08:20)
[2017-12-29] MEDS: ENOXAPARIN 30 MG/0.3 ML SYRINGE SUBQ SCH (08:22)
[2017-12-29] MEDS: POLYETHYLENE GLYCOL 3350 17 GM PACKET PO SCH (09:08)
--- NOTE | 2017-12-29 11:41 | PROVIDER PROGRESS NOTE ---
Subjective - Prog Note Date Prog Note Date: 12/29/17 Prog Note Time: 11:39 - Subjective Pt reports feeling: Improved (No complaints. Minimal pain) Objective - Vital Signs/Intake & Output Vital Signs: Vital Signs x48h Temp Pulse Pulse Resp BP BP Pulse Ox 12/29/17 10:50 36.9 C 65 18 94 12/29/17 10:35 64 169/94 H 95 12/29/17 08:00 36.9 C 65 18 197/81 H 191/70 H 89 L 12/29/17 03:43 36.6 C 71 22 182/82 H 94 Intake & Output: Intake & Output 12/27/17 12/28/17 12/28/17 12/29/17 00:59 00:59 23:59 23:59 Intake Total 900 Output Total 1650 Balance -750 - Lab Results Fish Bones: 12/29/17 04:35 12/28/17 04:20 Other Labs: Lab Results x24hrs 12/29/17 12/28/17 12/28/17 Range/Units 04:35 13:14 13:14 WBC 18.4 H (4.8-10.8) x10^3/uL RBC 3.34 L (4.20-5.40) 10^6/uL Hgb 9.1 L (12.0-16.0) g/dL Hct 29.2 L (37.0-47.0) % MCV 87.5 (81.0-99.0) fL MCH 27.3 (27.0-31.0) pg MCHC 31.2 L (32.0-36.0) g/dL RDW 16.0 H (12.0-15.0) % Plt Count 298 (130-450) 10^3/uL MPV 7.3 L (7.9-10.8) fL Reticulocyte % (Auto) (0.5-2.3) % Neut # (Auto) 16.4 H (1.5-6.6) 10^3/uL Lymph # (Auto) 1.2 L (1.5-3.5) 10^3/uL [place] # (Auto) 0.7 (0.0-1.0) 10^3/uL Eos # (Auto) 0.0 (0.0-0.7) 10^3/uL Baso # (Auto) 0.0 (0.0-0.1) 10^3/uL Absolute Nucleated RBC 0.00 x10^3/uL Nucleated RBC % 0.0 /100WBC Absolute Retic (0.020-0.110) 10^6/uL Iron (28-170) ug/dL TIBC (250-450) ug/dL % Saturation (20-50) % Transferrin (192-382) mg/dL Ferritin 191.4 (11.0-306.8) ng/mL Lactate Dehydrogenase 258 H (91-225) IU/L Vitamin B12 5790 H (180-914) pg/mL 12/28/17 12/28/17 Range/Units 13:14 13:14 WBC (4.8-10.8) x10^3/uL RBC 3.64 L (4.20-5.40) 10^6/uL Hgb (12.0-16.0) g/dL Hct (37.0-47.0) % MCV (81.0-99.0) fL MCH (27.0-31.0) pg MCHC (32.0-36.0) g/dL RDW (12.0-15.0) % Plt Count (130-450) 10^3/uL MPV (7.9-10.8) fL Reticulocyte % (Auto) 1.72 (0.5-2.3) % Neut # (Auto) (1.5-6.6) 10^3/uL Lymph # (Auto) (1.5-3.5) 10^3/uL [place] # (Auto) (0.0-1.0) 10^3/uL Eos # (Auto) (0.0-0.7) 10^3/uL Baso # (Auto) (0.0-0.1) 10^3/uL Absolute Nucleated RBC x10^3/uL Nucleated RBC % /100WBC Absolute Retic 0.063 (0.020-0.110) 10^6/uL Iron 16 L (28-170) ug/dL TIBC 185 L (250-450) ug/dL % Saturation 9 L (20-50) % Transferrin 132 L (192-382) mg/dL Ferritin (11.0-306.8) ng/mL Lactate Dehydrogenase (91-225) IU/L Vitamin B12 (180-914) pg/mL - Other Results/Comments Other Results/Comments: EXAM: Dressing intact. Mild pain with hip motion. Up in chair without any problem. N/V ok distally Assessment/Plan - Problem List (1) Hip fracture Impression: Satis post op PLAN: To SNF in AM. Continue walker ambulation - WBAT on right. THR precautions. Follow up in Ortho clinic in 2-3 weeks for faustino out and new XR. Qualifiers: Encounter type: initial encounter Fracture type: closed Laterality: right Qualified Code(s): S72.001A - Fracture of unspecified part of neck of right femur, initial encounter for closed fracture
[2017-12-29] MEDS: DOCUSATE SODIUM 100 MG CAPSULE PO PRN (12:49)
[2017-12-29] MEDS: FERROUS GLUCONATE 324 MG TABLET PO SCH (13:39)
[2017-12-29] MEDS: OXYBUTYNIN 5MG TABLET PO SCH (20:53)
[2017-12-29] MEDS: traZODone 50 MG TABLET PO SCH (20:53)
[2017-12-30] MEDS: SODIUM CHLORIDE FLUSH 0.9% 10 ML SYRINGE IVP SCH ×3 (01:45→16:56)
[2017-12-30] MEDS: SODIUM CHLORIDE FLUSH 0.9% 10 ML SYRINGE IVP PRN ×2 (06:30→21:54)
[2017-12-30] MEDS: PANTOPRAZOLE 40 MG VIAL IVP SCH (06:30)
[2017-12-30] MEDS: ENOXAPARIN 30 MG/0.3 ML SYRINGE SUBQ SCH (08:16)
[2017-12-30] MEDS: FERROUS GLUCONATE 324 MG TABLET PO SCH (08:16)
[2017-12-30] MEDS: ACETAMINOPHEN 325 MG TABLET PO PRN ×2 (08:17→15:02)
[2017-12-30] MEDS: POLYETHYLENE GLYCOL 3350 17 GM PACKET PO SCH (08:17)
[2017-12-30] MEDS: FUROSEMIDE 20 MG TABLET PO SCH (08:17)
[2017-12-30] MEDS: predniSONE 5 MG TABLET PO SCH (08:17)
[2017-12-30] MEDS: DOCUSATE SODIUM 100 MG CAPSULE PO PRN (08:18)
--- NOTE | 2017-12-30 08:35 | PROVIDER PROGRESS NOTE ---
Subjective - Prog Note Date Prog Note Date: 12/30/17 Prog Note Time: 08:33 - Subjective Pt reports feeling: Improved Objective - Vital Signs/Intake & Output Vital Signs: Vital Signs x48h Temp Pulse Resp BP Pulse Ox 12/30/17 07:00 36.6 C 57 L 20 184/93 H 94 Intake & Output: Intake & Output 12/28/17 12/28/17 12/29/17 12/30/17 00:59 23:59 23:59 23:59 Intake Total 3170 250 Output Total 3275 1550 Balance -105 -1300 - Lab Results Fish Bones: 12/29/17 04:35 12/28/17 04:20 - Other Results/Comments Other Results/Comments: No change in her exam Assessment/Plan - Problem List (1) Hip fracture Impression: satis post op PLAN: To SNF today. Follow up in Orthopedic clinic in 2 weeks. Qualifiers: Encounter type: initial encounter Fracture type: closed Laterality: right Qualified Code(s): S72.001A - Fracture of unspecified part of neck of right femur, initial encounter for closed fracture
[2017-12-30] MEDS: CARVEDILOL 12.5 MG TABLET PO SCH ×2 (08:46→21:09)
[2017-12-30] MEDS ORDERED: amLODIPine 5 MG TABLET PO SCH (09:00)
[2017-12-30 11:30] LABS: BASOPHILS % (AUTO) 0.3 %; EOSINOPHILS # (AUTO) 0.2 10^3/uL (0.0-0.7); EOSINOPHILS % (AUTO) 1.1 %; HGB - HEMOGLOBIN 10.1 g/dL (12.0-16.0); LYMPHOCYTES # (AUTO) 1.3 10^3/uL (1.5-3.5); LYMPHOCYTES % (AUTO) 9.2 %; MEAN CORPUSCULAR HEMOGLOBIN 27.4 pg (27.0-31.0); MEAN CORPUSCULAR HGB CONC 31.9 g/dL (32.0-36.0); MEAN PLATELET VOLUME 7.1 fL (7.9-10.8); MONOCYTES # (AUTO) 1.2 10^3/uL (0.0-1.0); MONOCYTES % (AUTO) 8.3 %; NEUTROPHILS # (AUTO) 11.7 10^3/uL (1.5-6.6); NEUTROPHILS % (AUTO) 81.1 %; PLT - PLATELET COUNT 294 10^3/uL (130-450); RED CELL DISTRIBUTION WIDTH 15.8 % (12.0-15.0); WHITE BLOOD COUNT 14.4 x10^3/uL (4.8-10.8)
[2017-12-30 11:41] LABS: ALBUMIN 2.7 g/dL (3.2-5.5); ALBUMIN/GLOBULIN RATIO 0.8 (1.0-2.2); BILIRUBIN,TOTAL 0.6 mg/dL (0.2-1.0); CALCIUM 8.7 mg/dL (8.5-10.3); CREATININE 0.9 mg/dL (0.4-1.0); TOTAL PROTEIN 6.1 g/dL (6.7-8.2)
--- NOTE | 2017-12-30 13:18 | XRAY Report ---
Reason: SOB, desaturation Procedure Date: 12/30/2017 Accession Number: [id number] / [id number] Procedure: XR - Chest 1 View X-Ray CPT Code: 55506 FULL RESULT: EXAM: CHEST RADIOGRAPHY EXAM DATE: 12/30/2017 12:20 PM. CLINICAL HISTORY: SOB, desaturation. COMPARISON: 12/27/2017. 12/26/2017. TECHNIQUE: 1 view. FINDINGS: Lungs/Pleura: There is bibasilar opacity, similar to prior. Slightly decreased interstitial opacities compared to prior. No pneumothorax. Mediastinum: The cardiac silhouette is largely obscured. There is atherosclerotic calcification in the aortic arch. Other: There appears to be a left-sided hernia which is incompletely characterized. The patient has been extubated and the esophagogastric tube has been removed. IMPRESSION: 1. Persistent bibasilar opacity. 2. Decreased interstitial opacities. RADIA
--- NOTE | 2017-12-30 15:23 | PROVIDER PROGRESS NOTE ---
Assessment/Plan - Problem List (1) Oxygen desaturation Assessment/Plan: CXRs were reviewed together with our staff Radiologist Dr Tamayo: on admission she had cardiomegaly, but had no parenchymal lung abnormality. Post op, she had cardiomegaly and marked vascular congestion. Today, she has a CXR showing c ardiomegaly and bilateral opacities and no further cephalization of flow. Her WBC has declined after increasing the previous 2 days, presumably climbed from steroid use. Will continue to treat with gentle diuresis and supplemental oxygen. Will add Incentive Spirometry, since the R base opacity is likely atelectasis. Will get oxygen oximetry test tomorrow, day of planned discharge, to assess for need for supplemental oxygen at discharge to rehab facility. (2) Difficult airway for intubation Assessment/Plan: The patient describes many nasal surgeries which may have caused nasal or sinus stnoses, but not tracheal narrowing. Continue supplemental O2. (3) Essential hypertension Assessment/Plan: BP poorly controlled the past 2 days, without evidence of pain or anxiety. Will add Amlodipine 5 mg daily for BP control, and it may help with pulmonary HTN as well, and will not cause bronchospasm or bradycardia. Monitor VS as ordered. (4) Pulmonary HTN Assessment/Plan: Echo done pre-op showed a resting PA pressure of 80 mmHg. This may be adding to her SOB. The etiology of her pulmonary HTN is not clear (from cahrt review or from patient). The choice of BP med start today was based on her pulm HTN. (5) Hip fracture Qualifiers: Encounter type: subsequent encounter Fracture type: closed Laterality: right Assessment/Plan: Pt is progressing with PT daily. Plan is for further PT rehab at a SNF. We are awaiting [facility]; our Air Breaker Operator is in contact with them. - Current Meds Current Meds: Current Medications Generic Name Dose Route Start Last Admin Trade Name Freq PRN Reason Stop Dose Admin Acetaminophen 650 mg 12/26/17 15:46 12/30/17 15:02 Tylenol PO 650 mg Q4HR PRN Administration Pain 1 to 4 Amlodipine Besylate 5 mg 12/30/17 09:00 12/30/17 08:46 Norvasc PO 5 mg DAILY SUSANNA Administration Carvedilol 12.5 mg 12/30/17 08:34 12/30/17 08:46 Coreg PO 12.5 mg BID SUSANNA Administration Docusate Sodium 100 mg 12/27/17 16:24 12/30/17 08:18 Colace 100mg Capsule PO 100 mg BID PRN Administration Constipation Enoxaparin Sodium 30 mg 12/28/17 09:00 12/30/17 08:16 Lovenox SUBQ 30 mg DAILY SUSANNA Administration Ferrous Gluconate 324 mg 12/29/17 11:00 12/30/17 08:16 Fergon PO 324 mg DAILYWM SUSANNA Administration Furosemide 20 mg 12/29/17 09:00 12/30/17 08:17 Lasix PO 20 mg DAILY SUSANNA Administration Acetaminophen 100 mls @ 400 mls/hr 12/27/17 16:24 12/28/17 12:15 Ofirmev IV Infused Q6HR PRN Infusion PAIN Morphine Sulfate 2 mg 12/26/17 15:46 12/28/17 08:29 Morphine (Carpuject) IVP 2 mg Q2HR PRN Administration Pain 8 to 10 Ondansetron HCl 4 mg 12/26/17 15:46 12/28/17 12:14 Zofran Inj IVP 4 mg Q6HR PRN Administration Nausea / Vomiting Oxybutynin Chloride 5 mg 12/29/17 21:00 12/29/17 20:53 Ditropan PO 5 mg QPM SUSANNA Administration Pantoprazole Sodium 40 mg 12/28/17 07:00 12/30/17 06:30 Protonix IVP 40 mg QDAC SUSANNA Administration Polyethylene Glycol 17 gm 12/27/17 09:00 12/30/17 08:17 Miralax PO 17 gm DAILY SUSANNA Administration Prednisone 7.5 mg 12/29/17 09:00 12/30/17 08:17 Deltasone PO 7.5 mg DAILY SUSANNA Administration Senna 17.2 mg 12/27/17 16:24 12/30/17 15:02 Senokot PO 17.2 mg Q12H PRN Administration Constipation Sodium Chloride 10 ml 12/26/17 15:46 12/30/17 06:30 Normal Saline Flush 0.9% IVP 10 ml PRN PRN Administration NEEDED PER PROVIDER ORDERS Sodium Chloride 10 ml 12/26/17 17:00 12/30/17 08:17 Normal Saline Flush 0.9% IVP 10 ml 0100,0900,1700 SUSANNA Administration Sodium Chloride 2 sprays 12/28/17 11:47 12/28/17 23:21 [place] MARISELA 2 sprays Q4HR PRN Administration Nasal Congestion Trazodone HCl 25 mg 12/28/17 21:00 12/29/17 20:53 Desyrel PO 25 mg QPM SUSANNA Administration - Lab Result Fish Bone Diagrams: 12/30/17 11:14 12/30/17 11:14 - Additional Planning My Orders: My Active Orders 12/30/17 08:34 Carvedilol [Coreg] 12.5 mg PO BID 12/30/17 09:00 amLODIPine [Norvasc] 5 mg PO DAILY Subjective - Subjective Patient Reports: Feeling Better, Resting Comfortably Nursing Reports: Shortness of Breath, Other (O2 sat dropped to 80% on R.A. at rest this am) Objective Vital Signs: Vital Signs - 24 hr 12/29/17 12/29/17 12/29/17 16:45 19:00 19:01 Temperature 36.7 C Heart Rate [ 65 Brachial] Respiratory 18 Rate Blood Pressure 201/62 H [Left Brachial artery] O2 Saturation 97 85 L 92 12/29/17 12/29/17 12/30/17 19:29 23:21 07:00 Temperature 36.5 C 36.6 C 36.6 C Heart Rate [ 65 61 57 L Brachial] Respiratory 24 20 20 Rate Blood Pressure 199/68 H 183/65 H 184/93 H [Left Brachial artery] O2 Saturation 93 97 94 12/30/17 12/30/17 10:01 15:07 Temperature 37.2 C Heart Rate [ 66 Brachial] Respiratory 22 Rate Blood Pressure 157/79 H [Left Brachial artery] O2 Saturation 96 Oxygen O2 Source [With Activity] Nasal cannula O2 Source [Without Activity] Nasal cannula O2 Source Nasal cannula I&O (Last 24 Hrs): Intake and Output Totals x24h 12/28/17 12/29/17 12/30/17 23:59 23:59 23:59 Intake Total 3170 1320 Output Total 3275 2600 Balance -105 -1280 General: Alert, Oriented x3 HEENT: Mucous membr. moist/pink Neck: Supple, No JVD Neuro: Non Focal Cardiovascular: Regular rate, No murmurs Respiratory: Breath sounds nml, Other (increased AP diameter) Abdomen: Soft Extremities: No edema - Results Results: Laboratory Results WBC 14.4 x10^3/uL (4.8-10.8) H 12/30/17 11:14 RBC 3.70 10^6/uL (4.20-5.40) L 12/30/17 11:14 Hgb 10.1 g/dL (12.0-16.0) L 12/30/17 11:14 Hct 31.8 % (37.0-47.0) L 12/30/17 11:14 MCV 86.0 fL (81.0-99.0) 12/30/17 11:14 MCH 27.4 pg (27.0-31.0) 12/30/17 11:14 MCHC 31.9 g/dL (32.0-36.0) L 12/30/17 11:14 RDW 15.8 % (12.0-15.0) H 12/30/17 11:14 Plt Count 294 10^3/uL (130-450) 12/30/17 11:14 MPV 7.1 fL (7.9-10.8) L 12/30/17 11:14 Reticulocyte % (Auto) 1.72 % (0.5-2.3) 12/28/17 13:14 Neut # (Auto) 11.7 10^3/uL (1.5-6.6) H 12/30/17 11:14 Lymph # (Auto) 1.3 10^3/uL (1.5-3.5) L 12/30/17 11:14 [place] # (Auto) 1.2 10^3/uL (0.0-1.0) H 12/30/17 11:14 Eos # (Auto) 0.2 10^3/uL (0.0-0.7) 12/30/17 11:14 Baso # (Auto) 0.0 10^3/uL (0.0-0.1) 12/30/17 11:14 Absolute Nucleated RBC 0.01 x10^3/uL 12/30/17 11:14 Nucleated RBC % 0.0 /100WBC 12/30/17 11:14 Absolute Retic 0.063 10^6/uL (0.020-0.110) 12/28/17 13:14 PT 14.9 secs (9.9-12.6) H 12/26/17 16:14 INR 1.3 (0.8-1.2) H 12/26/17 16:14 APTT 27.5 secs (24.9-33.3) 12/26/17 16:14 Bld Gas Analysis Time 1723 12/27/17 17:25 Sample Site RIGHT RADIAL 12/27/17 17:25 ABG pH 7.46 (7.35-7.45) H 12/27/17 17:25 ABG pCO2 35 mmHg (34-45) 12/27/17 17:25 ABG pO2 78 mmHg (80-100) L 12/27/17 17:25 ABG HCO3 24.3 mmol/L (22.0-26.0) 12/27/17 17:25 ABG Total CO2 25.4 MMOL/L (21.0-29.0) 12/27/17 17:25 ABG O2 Saturation 96 % (94-98) 12/27/17 17:25 ABG Base Excess 0.7 mmol/L (-2.0-3.0) 12/27/17 17:25 Preet Test POSITIVE 12/27/17 17:25 Respiration Rate 12 b/min 12/27/17 17:25 O2 Delivery Device VENTILATOR 12/27/17 17:25 Vent Mode SIMV 12/27/17 17:25 FiO2 50.00 12/27/17 17:25 Tidal Volume 600 mL 12/27/17 17:25 PEEP 5 cmH2O 12/27/17 17:25 Pressure Support Vent 10 cmH2O 12/27/17 17:25 Sodium 134 mmol/L (135-145) L 12/30/17 11:14 Potassium 4.2 mmol/L (3.5-5.0) 12/30/17 11:14 Chloride 97 mmol/L (101-111) L 12/30/17 11:14 Carbon Dioxide 29 mmol/L (21-32) 12/30/17 11:14 Anion Gap 8.0 (6-13) 12/30/17 11:14 BUN 23 mg/dL (6-20) H 12/30/17 11:14 Creatinine 0.9 mg/dL (0.4-1.0) 12/30/17 11:14 Estimated GFR (MDRD) 59 (>89) L 12/30/17 11:14 Glucose 123 mg/dL (70-100) H 12/30/17 11:14 Calcium 8.7 mg/dL (8.5-10.3) 12/30/17 11:14 Iron 16 ug/dL (28-170) L 12/28/17 13:14 TIBC 185 ug/dL (250-450) L 12/28/17 13:14 % Saturation 9 % (20-50) L 12/28/17 13:14 Transferrin 132 mg/dL (192-382) L 12/28/17 13:14 Ferritin 191.4 ng/mL (11.0-306.8) 12/28/17 13:14 Total Bilirubin 0.6 mg/dL (0.2-1.0) 12/30/17 11:14 AST 30 IU/L (10-42) 12/30/17 11:14 ALT 17 IU/L (10-60) 12/30/17 11:14 Alkaline Phosphatase 64 IU/L (42-121) 12/30/17 11:14 Lactate Dehydrogenase 258 IU/L (91-225) H 12/28/17 13:14 Troponin I < 0.04 ng/mL (<0.49) 12/26/17 16:14 B-Natriuretic Peptide 689 pg/mL (5-100) H 12/30/17 11:14 Total Protein 6.1 g/dL (6.7-8.2) L 12/30/17 11:14 Albumin 2.7 g/dL (3.2-5.5) L 12/30/17 11:14 Globulin 3.4 g/dL (2.1-4.2) 12/30/17 11:14 Albumin/Globulin Ratio 0.8 (1.0-2.2) L 12/30/17 11:14 Lipase 30 U/L (22-51) 12/26/17 16:14 Vitamin B12 5790 pg/mL (180-914) H 12/28/17 13:14 Blood Type A POSITIVE 12/27/17 04:25 Antibody Screen NEGATIVE 12/27/17 04:25 ABX Reporting Has patient been on IV antibiotics over the past 48 hours?: No
[2017-12-30] MEDS: traZODone 50 MG TABLET PO SCH (21:10)
[2017-12-30] MEDS: OXYBUTYNIN 5MG TABLET PO SCH (21:11)
[2017-12-30] MEDS ORDERED: hydrALAZINE INJ 20 MG/ML VIAL IVP PRN (21:24)
[2017-12-31] MEDS: SODIUM CHLORIDE FLUSH 0.9% 10 ML SYRINGE IVP SCH ×2 (05:05→08:59)
[2017-12-31] MEDS: PANTOPRAZOLE 40 MG VIAL IVP SCH (06:59)
[2017-12-31 08:10] VITALS: BP 187/71
[2017-12-31] MEDS ORDERED: BISACODYL 10 MG SUPP PR ONE (08:18)
[2017-12-31] MEDS: FERROUS GLUCONATE 324 MG TABLET PO SCH (08:55)
[2017-12-31] MEDS: predniSONE 5 MG TABLET PO SCH (08:56)
[2017-12-31] MEDS: CARVEDILOL 12.5 MG TABLET PO SCH (08:56)
[2017-12-31] MEDS: POLYETHYLENE GLYCOL 3350 17 GM PACKET PO SCH (08:57)
[2017-12-31] MEDS: FUROSEMIDE 20 MG TABLET PO SCH (08:57)
[2017-12-31] MEDS: ENOXAPARIN 30 MG/0.3 ML SYRINGE SUBQ SCH (08:58)
[2017-12-31] MEDS ORDERED: amLODIPine 5 MG TABLET PO SCH (09:00)
--- NOTE | 2017-12-31 10:09 | Discharge Plan ---
"Discharge Plan for SNF / DIONY - Discharge Plan And Transition Orders Disposition: 03 SNF DC/Xfer Condition: Fair Allergies and Adverse Reactions: Allergies Allergy/AdvReac Type Severity Reaction Status Date / Time No Known Drug Allergies Allergy Verified 12/26/17 14:21 - SNF / NURSING HOME Transition Orders Admit to (Facility): [facility] Under the care of (Name): Dr. 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 Notify PCP of admission and forward orders to primary provider for signature. Weight on admission and: Weekly Call PCP immediately if weight increases by: 5 kg Other Notification Orders: Call PCP immediately if patient develops dyspnea, chest pain/tightness or edema. House Bowel Program: Yes Additional Bowel Program Orders: If no BM after 2 days, nurse may give M.O.M. 30ml PO PRN and/or ducolax Supp 1 PA and/or KM 250mg P.O., and/or senna 1-2 tabs PO. On day 3 nurse may give repeat above order until residents constipation is resolved. Annual Influenza Vaccine (between Oct 25 and May 24): Yes Two-step PPD per [facility] [id number] or approved exception documents: Yes Treatments & Other Orders: Daily PT and OT Oxygen Orders: None Orthopedic Orders: See Dr Loaiza (Orthopedics) in follow-up in 2-3 weeks. Medication Orders: PLEASE REFER TO THE DISCHARGE MEDICATION LIST. Insulin Orders?: No - Medications New Prescriptions: Acetaminophen [Tylenol] 650 mg PO Q4HR PRN #30 tablet PRN Reason: Pain 1 to 4 oxyCODONE [Roxicodone] 5 mg PO Q4HR PRN #14 tablet PRN Reason: Pain 5 to 7 amLODIPine [Norvasc] 5 mg PO BID #60 tablet Aspirin EC [Ecotrin] 325 mg PO DAILY #30 tablet Carvedilol [Coreg] 6.25 mg PO BID #30 tablet Polyethylene Glycol 3350 [Miralax] 17 gm PO DAILY #30 packet Senna [Senokot] 17.2 mg PO Q12H PRN #30 tablet PRN Reason: Constipation - Diet Type: No added salt Texture: Regular Liquids: Thin May have monthly special meal: Yes - Therapies | Activity Therapy: Evaluation | Treat if indicated: PT, OT Rehabilitation Potential: Maximize functional status Activity: Activity as Tolerated Weight Bearing: Full Weight Assistance Devices: Walker"
[2017-12-31] MEDS: ACETAMINOPHEN 325 MG TABLET PO PRN (11:55)
--- NOTE | 2018-01-07 12:55 | DISCHARGE SUMMARY ---
Physician: Mandi uGerra MD DATE OF ADMISSION: 12/26/2017 DATE OF DISCHARGE: 12/31/2017 HISTORY OF PRESENT ILLNESS: This is an 87-year-old white female who has a history of hypertension and previous left hip repair. She sustained a fall and a fracture of the right hip and was admitted. HOSPITAL COURSE AND DISCHARGE DIAGNOSES 1. Hip fracture on the right after a fall. The patient was taken for open reduction internal fixation of the hip on 12/27/2017 and had successful surgery. Postoperatively, she began physical therapy and had medications for pain control. She was accepted in transfer to [facility] rehab for further PT. She was transported there by private car. 2. Right hip surgery. The patient had no complications with this in the OR and was able to ambulate without pain in the postop setting. 3. Postop congestive heart failure, due to left ventricular diastolic dysfunction. The patient required a stay in the ICU (see #4) and chest x-ray showed congestive heart failure. She was diuresed, troponins were negative, an Echo was done that showed preserved left ventricular ejection fraction of 65- 70%, but she had grade 2 diastolic dysfunction. Other Echo findings were normal right ventricle size and function, mild aortic and mitral regurgitation, moderate tricuspid regurgitation and pulmonary artery pressure very elevated at 81 mmHg. The patient was able to ambulate for rehabilitation without the need for supplemental oxygen. 4. Difficult intubation. In the preop setting she was a difficult intubation. 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 Several tries at intubation were done and eventually she had the ET tube placed using a laryngoscope. In the postoperative setting there was no leak, but substantial soft tissue edema and therefore she was placed in the ICU, intubated and got IV steroids and the extubation was done 1 day later. The patient is aware of this trouble with her oropharynx. This may potentially cause hypoxia and may have added to the pulmonary hypertension seen on Echo. 5. Hypertension. The patient was kept on her prehospital medications and had good blood pressure control. 6. Pulmonary hypertension. The patient has evidence of severe pulmonary hypertension on Echo as described above. She should have followup for this; consider Pulmonary and/or Cardiology consultations. 7. Urinary incontinence. The patient required absorptive underwear while here. 8. Constipation. The patient required multiple medications for constipation. DISCHARGE MEDICATIONS 1. Amlodipine 5 mg b.i.d. 2. Adult dose aspirin daily. 3. Coreg 6.25 mg b.i.d. 4. MiraLax daily. 5. Senokot b.i.d. 6. Oxycodone 5 mg every 4 hours p.r.n. pain. 7. Tylenol 650 mg every 4 hours p.r.n. pain. 8. Vitamin D3. 9. Multivitamin daily. 10. Ubiquinol 100 mg daily. 11. Ditropan 5 mg every night. 12. Omeprazole 20 mg daily. 13. Magnesium 400 mg daily. 14. Furosemide 20 mg daily. 15. Potassium 10 mEq daily. CONDITION AT DISCHARGE: Stable. PHYSICAL EXAMINATION VITAL SIGNS: Blood pressure 155/56, heart rate 60, sinus rhythm, afebrile, room air saturation 96%. HEENT: Unremarkable. NECK: Without JVD or carotid bruits. CHEST: Clear. HEART: Sounds normal. ABDOMEN: Soft and benign. EXTREMITIES: No edema. NEUROLOGIC: Grossly intact. FOLLOWUP: With her PCP, after discharge from the inpatient rehab facility. CODE STATUS: DNR. Time required to complete this entire discharge, arrangement for inpatient rehabilitation with orders, prescriptions, chart review, and dictation: 60 minutes. cc: Nya Raines PA-C TD: 01/07/2018 12:01 MTDD
== END 2017-12-31 12:30 | DRG 469 ==
LOC: ED 14:02 → MS3 15:46 → MS2 12-27 14:44 → ICU 12-27 16:37
PROVIDERS: ADMIT Specialist; ATTEND Internal Medicine
PROC: 5A1935Z Respiratory Ventilation, Less than 24 Consecutive Hours (ICD-10-PCS; 2017-12-27)
PROC: 0SRR0JA Replacement of Right Hip Joint, Femoral Surface with Synthetic Substitute, Uncemented, Open Approach (ICD-10-PCS; principal; 2017-12-27 13:30)
DX: S72.011A Unspecified intracapsular fracture of right femur, initial encounter for closed fracture (principal); W18.30XA Fall on same level, unspecified, initial encounter; I50.33 Acute on chronic diastolic (congestive) heart failure; I10 Essential (primary) hypertension; D62 Acute posthemorrhagic anemia; I11.0 Hypertensive heart disease with heart failure; I27.23 Pulmonary hypertension due to lung diseases and hypoxia; W18.39XA Other fall on same level, initial encounter; Y92.481 Parking lot as the place of occurrence of the external cause; T88.4XXA Failed or difficult intubation, initial encounter; J38.4 Edema of larynx; Y83.1 Surgical operation with implant of artificial internal device as the cause of abnormal reaction of the patient, or of later complication, without mention of misadventure at the time of the procedure; Y92.234 Operating room of hospital as the place of occurrence of the external cause; D72.829 Elevated white blood cell count, unspecified; T38.0X5A Adverse effect of glucocorticoids and synthetic analogues, initial encounter; R32 Unspecified urinary incontinence; K59.00 Constipation, unspecified; K13.79 Other lesions of oral mucosa; B94.8 Sequelae of other specified infectious and parasitic diseases; E87.6 Hypokalemia; G62.9 Polyneuropathy, unspecified; Z66 Do not resuscitate; Z96.643 Presence of artificial hip joint, bilateral; Z79.899 Other long term (current) drug therapy; Z78.1 Physical restraint status
CPT/HCPCS: 36415; 36600; 71045; 80048; 80053; 82274; 82607; 82728; 82803; 83540; 83615; 83690; 83880; 84466; 84484; 85025; 85044; 85610; 85730; 86850; 86900; 86901; 87150; 93005; 93306; 94002; 94003; 94761; 94770; 99284; 99285